=== PATIENT | female | born 1950 | race Caucasian/White ===

== ENCOUNTER 2018-09-07 08:02 | Emergency (ER) | payer OTHER, MEDICARE, SELFPAY ==
[2018-09-07 08:07] VITALS: BP 160/72; PULSE 98; RESP 16; TEMP 36.6; O2SAT 98
--- NOTE | 2018-09-07 08:35 | W.ED.GENAD ---
Discharge Plan Disposition Patient Disposition: HOME Condition: Good Discharge Details Chief Complaint: Cellulitis Clinical Impression: Colitis without complication, Blister Primary Care Provider: Jennifer Bee ED Provider: Kirill Nelson Home Meds and New Rx's Prescriptions: No Action amoxicillin 500 mg Capsule 500 mg PO DAILY RF: 0 metoprolol succinate 50 mg Tablet Extended Release 24 Hr 50 mg PO DAILY RF: 0 rosuvastatin 10 mg Tablet 10 mg PO DAILY RF: 0 Discharge Instructions Instructions: Colitis (ED) Referrals: [facility] Emergency Dept. [Outside] - Return if symptoms worsen Medical Decision Making History and exam consistent with colitis from custodial Amoxicillin use. Blister is unrelated issue and I do not see any fissure or active tracking of the abdomen blister. Superficial with no depth to the wound. We discussed possible differentials and diagnostic to confirm. She agrees with the antibiotic causing the symptoms at this point. So we agreed to treat conservatively without diagnostics. She will increase her probiotic regiment either with more yogurt or probiotic. She agrees to return if symptoms worsen i.e blood in stool, fever, or worsening pain. Advised to keep belly button clean and dry and no antibiotics. HPI General Mode of arrival: ambulatory. Date/Time Provider Initiated Documentation: 09/07/18 08:05. Limitations to Documentation: no limitations. Information obtained by: patient. History of Present Illness 68 year old F presents to the emergency department with the chief complaint of abdominal discomfort and skin infection, HPI Narrative: 68 y/o female here with concerns of possible abscess to abdomen and secondary low abdominal pain with back pain. For the last few weeks she has noticed bilateral lower abdominal pain with intermittent loose stools and bilateral lower back pain. Denies any fever, chills, N/V, cp, or sob. Although no chest pain she has felt occasional panicky in the chest. This morning in the shower she felt a little pain to the belly button. She felt the area with her finger and noticed it to be wet and had smelly discharge on her finger. Concerned about cellulitis which was on her mind because her son was recently admitted for cellulitis. She is currently weaning herself off Amoxicillin for roscea for which she has been on for the last three weeks. She does eat yogurt daily. she has had similar abdominal discomfort in the past. Related Data Home Medications Medication Instructions Recorded Confirmed amoxicillin 500 mg PO DAILY 09/07/18 09/07/18 metoprolol succinate 50 mg PO DAILY 09/07/18 09/07/18 rosuvastatin 10 mg PO DAILY 09/07/18 09/07/18 Allergies Allergy/AdvReac Type Severity Reaction Status Date / Time doxycycline Allergy Skin Rash Unverified 09/07/18 08:12 Tetracyclines Allergy Skin Rash Unverified 09/07/18 08:12 General Stated Complaint: Cellulitis GIOVANI: 3 Review of Systems Constitutional Denies fatigue, Denies fever(s), Denies poor appetite, Denies weakness, Denies weight gain and Denies weight loss ENT Reports system reviewed and no additional complaints, except as docu Cardiovascular Reports system reviewed and no additional complaints, except as docu Respiratory Reports system reviewed and no additional complaints, except as docu Gastrointestinal Reports abdominal pain, Reports bloating, Denies hematochezia, Denies coffee ground emesis, Reports loose stools, Denies nausea and Denies vomiting Genitourinary Reports system reviewed and no additional complaints, except as docu Musculoskeletal Reports back pain Integumentary/Breasts Reports wounds (belly button) Neurologic Denies weakness Endocrine Reports system reviewed and no additional complaints, except as docu and Denies fatigue Hematologic/Lymphatic Reports system reviewed and no additional complaints, except as docu PFSH Social History Smoking/Tobacco Use Status: Never Exam Const General: cooperative, comfortable, no acute distress and well developed Nutritional Appearance: average body habitus Orientation: alert, awake and oriented x3 HENMT Head: atraumatic Ears: hearing grossly normal bilaterally and external ears normal General nose exam: external nose normal and nares normal Mouth: moist mucous membranes Eyes General: appearance normal, both eyes and all related structures Neck Neck: normal visual inspection, full ROM and no lymphadenopathy Resp Effort & Inspection: normal respiratory effort and able to speak in complete sentences Auscultation: clear to auscultation bilaterally Cardio Rate: regular rate Rhythm: regular rhythm GI Inspection: non-distended and other (5mm diameter flat pink area that looks like a ruptured blister. No erythema) Palpation: soft, no guarding, no hepatosplenomegaly, no hernias, no masses and nontender Auscultation: normal bowel sounds General: No CVA tenderness Back/Spine/Pelvis Back: No back tenderness Cervical Spine: cervical ROM normal Thoracic/Lumbar Spine: thoraco-lumbar ROM normal Skin General skin exam: no rashes or lesions noted Full body images: 1. 5mm in diameter pink area that looks like a ruptured blister. No drainage, redness, or pain. No ascending redness and no warmth. Neuro General: alert, awake and oriented x3 Extrem General: normal to inspection, full ROM and normal capillary refill Psych Appearance: grossly normal Speech and Movement: speech and movement normal Mood: congruent mood Affect: normal affect Attitude: cooperative Thought Process: normal Thought Content: normal Course Vital Signs Temperature 36.6 C 09/07/18 08:07 Pulse 98 H 09/07/18 08:07 Respiratory Rate 16 09/07/18 08:07 Blood Pressure 160/72 H 09/07/18 08:07 Pulse Oximetry 98 09/07/18 08:07 Temperature 36.6 C 09/07/18 08:07 Temperature Source Temporal Artery Scan 09/07/18 08:07 Pulse 98 H 09/07/18 08:07 Respiratory Rate 16 09/07/18 08:07 Respiratory Effort Non-Labored 09/07/18 08:10 Blood Pressure 160/72 H 09/07/18 08:07 Blood Pressure Position Sitting 09/07/18 08:07 Pulse Oximetry 98 09/07/18 08:07 Oxygen Delivery Method Room Air 09/07/18 08:07 Oxygen Flow Rate 0 09/07/18 08:07 Pain Level 4 09/07/18 08:07
[2018-09-07 08:45] VITALS: BP 138/80; PULSE 88
--- NOTE | 2018-09-07 08:48 | ED.GENADUL_ITS ---
Discharge Plan Disposition Patient Disposition: HOME Condition: Good Discharge Details Chief Complaint: Cellulitis Clinical Impression: Colitis without complication, Blister Primary Care Provider: Jennifer Bee ED Provider: Kirill Nelson Home Meds and New Rx's Prescriptions: No Action amoxicillin 500 mg Capsule 500 mg PO DAILY RF: 0 metoprolol succinate 50 mg Tablet Extended Release 24 Hr 50 mg PO DAILY RF: 0 rosuvastatin 10 mg Tablet 10 mg PO DAILY RF: 0 Discharge Instructions Instructions: Colitis (ED) Referrals: [facility] Emergency Dept. [Outside] - Return if symptoms worsen Medical Decision Making History and exam consistent with colitis from penitentiary Amoxicillin use. Blister is unrelated issue and I do not see any fissure or active tracking of the abdomen blister. Superficial with no depth to the wound. We discussed possible differentials and diagnostic to confirm. She agrees with the antibiotic causing the symptoms at this point. So we agreed to treat conservatively without diagnostics. She will increase her probiotic regiment either with more yogurt or probiotic. She agrees to return if symptoms worsen i.e blood in stool, fever, o r worsening pain. Advised to keep belly button clean and dry and no antibiotics. HPI General Mode of arrival: ambulatory . Date/Time Provider Initiated Documentation: 09/07/18 08:05 . Limitations to Documentation: no limitations . Information obtained by: patient . History of Present Illness 68 year old F presents to the emergency department with the chief complaint of abdominal disc omfort and skin infection, HPI Narrative: 68 y/o female here with concerns of possible abscess to abdomen and secondary low abdominal pain with back pain. For the last few weeks she has noticed bilateral lower abdominal pain with intermittent loose stools and bilateral lower back pain. Denies any fever, chills, N/V, cp, or sob. Although no chest pain she has felt occasional panicky in the chest. This morning in the shower she felt a little pain to the belly button. She felt the area with her finger and noticed it to be wet and had smelly discharge on her finger. Concerned about cellulitis which was on her mind because her son was recently admitted for cellulitis. She is currently weaning herself off Amoxicillin for roscea for which she has been on for the last three weeks. She does eat yogurt daily. she has had similar abdominal discomfort in the past. Related Data Home Medications Medication Instructions Recorded Confirmed amoxicillin 500 mg PO DAILY 09/07/18 09/07/18 metoprolol succinate 50 mg PO DAILY 09/07/18 09/07/18 rosuvastatin 10 mg PO DAILY 09/07/18 09/07/18 Allergies Allergy/AdvReac Type Severity Reaction Status Date / Time doxycycline Allergy Skin Rash Unverified 09/07/18 08:12 Tetracyclines Allergy Skin Rash Unverified 09/07/18 08:12 General Stated Complaint: Cellulitis GIOVANI: 3 Review of Systems Constitutional Denies fatigue, Denies fever(s), Denies poor appetite, Denies weakness, Denies weight gain and Denies weight loss ENT Reports system reviewed and no additional complaints, except as docu Cardiovascular Reports system reviewed and no additional complaints, except as docu Respiratory Reports system reviewed and no additional complaints, except as docu Gastrointestinal Reports abdominal pain, Reports bloating, Denies hematochezia, Denies coffee ground emesis, Reports loose stools, Denies nausea and Denies vomiting Genitourinary Reports system reviewed and no additional complaints, except as docu Musculoskeletal Reports back pain Integumentary/Breasts Reports wounds (belly button) Neurologic Denies weakness Endocrine Reports system reviewed and no additional complaints, except as docu and Denies fatigue Hematologic/Lymphatic Reports system reviewed and no additional complaints, except as docu PFSH Social History Smoking/Tobacco Use Status: Never Exam Const General: cooperative, comfortable, no acute distress and well developed Nutritional Appearance: average body habitus Orientation: alert, awake and oriented x3 HENMT Head: atraumatic Ears: hearing grossly normal bilaterally and external ears normal General nose exam: external nose normal and nares normal Mouth: moist mucous membranes Eyes General: appearance normal, both eyes and all related structures Neck Neck: normal visual inspection, full ROM and no lymphadenopathy Resp Effort & Inspection: normal respiratory effort and able to speak in complete sentences Auscultation: clear to auscultation bilaterally Cardio Rate: regular rate Rhythm: regular rhythm GI Inspection: non-distended and other (5mm diameter flat pink area that looks like a ruptured blister. No erythema) Palpation: soft, no guarding, no hepatosplenomegaly, no hernias, no masses and nontender Auscultation: normal bowel sounds General: No CVA tenderness Back/Spine/Pelvis Back: No back tenderness Cervical Spine: cervical ROM normal Thoracic/Lumbar Spine: thoraco-lumbar ROM normal Skin General skin exam: no rashes or lesions noted Full body images: 1. 5mm in diameter pink area that looks like a ruptured blister. No drainage, redness, or pain. No ascending redness and no warmth. Neuro General: alert, awake and oriented x3 Extrem General: normal to inspection, full ROM and normal capillary refill Psych Appearance: grossly normal Speech and Movement: speech and movement normal Mood: congruent mood Affect: normal affect Attitude: cooperative Thought Process: normal Thought Content: normal Course Vital Signs Temperature 36.6 C 09/07/18 08:07 Pulse 98 H 09/07/18 08:07 Respiratory Rate 16 09/07/18 08:07 Blood Pressure 160/72 H 09/07/18 08:07 Pulse Oximetry 98 09/07/18 08:07 Temperature 36.6 C 09/07/18 08:07 Temperature Source Temporal Artery Scan 09/07/18 08:07 Pulse 98 H 09/07/18 08:07 Respiratory Rate 16 09/07/18 08:07 Respiratory Effort Non-Labored 09/07/18 08:10 Blood Pressure 160/72 H 09/07/18 08:07 Blood Pressure Position Sitting 09/07/18 08:07 Pulse Oximetry 98 09/07/18 08:07 Oxygen Delivery Method Room Air 09/07/18 08:07 Oxygen Flow Rate 0 09/07/18 08:07 Pain Level 4 09/07/18 08:07
== END 2018-09-07 08:41 | disposition home or self-care (01) ==
PROVIDERS: Emergency Provider Nurse Practitioner Family; PCP Family Medicine
DX: K52.9 Noninfective gastroenteritis and colitis, unspecified (principal); S30.821A Blister (nonthermal) of abdominal wall, initial encounter; X58.XXXA Exposure to other specified factors, initial encounter
CPT/HCPCS: 99282

== ENCOUNTER 2020-07-12 09:10 | Outpatient (REF) | payer OTHER, MEDICARE, SELFPAY ==
[2020-07-14 17:54] LABS: COVID-19 RT-PCR Result NEGATIVE (Negative)
== END 2020-07-12 09:30 ==
LOC: LBO 09:10
PROVIDERS: PCP Family Medicine; Visit Provider Nurse Practitioner Family
DX: Z11.59 Encounter for screening for other viral diseases (principal)
CPT/HCPCS: U0003

== ENCOUNTER 2020-12-24 09:41 | Outpatient (CLI) | payer OTHER, MEDICARE, SELFPAY ==
--- NOTE | 2020-12-24 | DI.RAD_ITS ---
EXAM: XR FOOT LT COMPLETE CLINICAL HISTORY: FOOT PAIN, M79.673 TECHNIQUE: COMPARISON: No exams were available for comparison FINDINGS: Three views were obtained. There are mild degenerative changes of the IP joints. Bony alignment christofer ears essentially within normal limits. No other significant abnormality seen. IMPRESSION: RADIATION DOSE DELIVERED: Total DLP
--- NOTE | 2020-12-24 | DI.RAD_ITS ---
EXAM: XR FOOT RT COMPLETE CLINICAL HISTORY: FOOT PAIN, M79.673 TECHNIQUE: COMPARISON: CR XR FOOT LT COMPLETE from 12/24/2020 FINDINGS: Three views were obtained. There are [id number] degenerative changes of the IP joints. No oth er significant bony abnormality seen. Alignment appears within normal limits. IMPRESSION: RADIATION DOSE DELIVERED: Total DLP
== END 2020-12-24 10:01 ==
PROVIDERS: PCP Family Medicine; Visit Provider Family Medicine
DX: M79.671 Pain in right foot (principal); M79.672 Pain in left foot
CPT/HCPCS: 73630

== ENCOUNTER 2021-01-12 10:25 | Emergency (ER) | payer OTHER, MEDICARE, SELFPAY ==
[2021-01-12 10:31] VITALS: BP 139/68; PULSE 93; RESP 16; TEMP 36.4; O2SAT 99
--- NOTE | 2021-01-12 10:43 | ED.GENADUL_ITS ---
Discharge Plan Disposition Patient Disposition: HOME Condition: Good Discharge Details Clinical Impression: Foot sprain Primary Care Provider: Jennifer Bee ED Provider: Nell Castro Home Meds and New Rx's Prescriptions: Continued metoprolol succinate 50 mg Tablet Extended Release 24 Hr 50 mg PO DAILY RF: 0 rosuvastatin 10 mg Tablet 10 mg PO DAILY RF: 0 No Action diclofenac potassium 50 mg Tablet 50 mg PO BID RF: 0 famotidine 40 mg Tablet 40 mg PO DAILY RF: 0 Discharge Instructions Instructions: Foot Sprain (ED) Additional Instructions: Imaging is reassuring today. Likely sprain. Please encourage rest, ice, elevation. Tylenol and/or ibuprofen as needed for discomfort. You may use postoperative shoe to help with discomfort. You develop new or worsening symptoms to seek care urgently once again. Otherwise, please follow-up with your primary care in 2 weeks for reevaluation Referrals: Jennifer Bee [Primary Care Provider] - Discharge Data Discharge Date/Time-TO BE ENTERED AT DEPARTURE: 01/12/21 13:34 Medical Decision Making Patient is a pleasant 70 year old female presenting today with c/c of left foot pain. Reports rotational injury at home. No other injury at the time of the incident. States she can walk on lateral foot but cannot weight bear flat foot or put pressure on arch of her foot. No N/T. [place] a pop. On exam, she appears nontoxic. 2+ distal pulses, sensation intact. ROM of toes and ankle intact. No pain in toes or over 5th metatarsal. No pain over heel or ankle. Pain in arch, minimal swelling. No discoloration. Patient declines analgesics. Will obtain xr for evaluation for potential fracture. FINDINGS: There is no evidence of fracture or diastasis of the Lisfranc joint. However, there is subtle suggestion of a fracture of the anterior process of the calcaneus. Accessory ossicles are noted lateral to the cuboid bone. No pes planus. No osseous lesions nor erosions. No radiopaque foreign body. No inferior calcaneal spur. IMPRESSION: Subtle suggestion of possible fracture of the anterior process of the calcaneus. Recommend ankle views which may better demonstrate this possible fracture. Will obtain repeat imaging as recommended. FINDINGS: There is no evidence of fracture nor widening of the mortise. The anterior process of the calcaneus does not appear fractured on these views. There is no osseous tarsal coalition. Talar dome appears unremarkable. IMPRESSION: No fracture evident Discussed finding with the patient. Likely sprain. Encouraged RICE. She will wear a post operative shoe to help with immobilization and support. Advised f/u with PCP in 2 weeks for reevaluation. Return precautions discussed. All of her questions and concerns were addressed, she is in agreement with this plan. HPI General Mode of arrival: ambulatory . Date/Time Provider Initiated Documentation: 01/12/21 10:42 . Limitations to Documentation: no limitations . Information obtained by: patient and RN notes reviewed . History of Present Illness 70 year old F presents to the emergency department with the chief complaint of left foot pain, described as moderate, with intensity rated at 7. Quality is described as aching, and is localized to the left and lower extremity. Patient reports no radiation. Patient started experiencing this minute(s) and it has been constant. Immobilization improves symptom(s), Movement worsens symptoms . Patient notes no other symptoms.. Patient did receive the following treatments prior to arrival, none Related Data Home Medications Medication Instructions Recorded Confirmed metoprolol succinate 50 mg PO DAILY 09/07/18 01/12/21 rosuvastatin 10 mg PO DAILY 09/07/18 01/12/21 diclofenac potassium 50 mg PO BID 01/12/21 01/12/21 famotidine 40 mg PO DAILY 01/12/21 01/12/21 Allergies Allergy/AdvReac Type Severity Reaction Status Date / Time doxycycline Allergy Skin Rash Unverified 01/12/21 10:36 Tetracyclines Allergy Skin Rash Unverified 01/12/21 10:36 General Stated Complaint: Orthopedic GIOVANI: 4 Review of Systems Constitutional Constitutional: Reports as per HPI, Denies chills, Denies fever(s), Denies headache(s) and Denies weakness ENT Ears, Nose, Mouth, and Throat: Denies headache(s) Cardiovascular Cardiovascular: Reports as per HPI Respiratory Respiratory: Reports as per HPI and Denies cough Musculoskeletal Musculoskeletal: Reports as per HPI and Denies tingling Integumentary/Breasts Skin/Breast: Reports as per HPI, Denies rash and Denies wounds Neurologic Neurologic: Reports as per HPI, Denies headache(s), Denies tingling, Denies paresthesias and Denies weakness [facility] Medical History (Updated 01/12/21 @ 13:20 by WEI Noriega) Essential hypertension Hyperlipidemia Migraine Rosacea Social History Smoking/Tobacco Use Status: Never Smoking risk assessment performed?: Yes Alcohol Intake: current Alcohol Intake frequency: holidays/special occasions only Alcohol type: wine Drug use: Never Do you feel safe at home: Yes Do you feel safe in your relationship?: Yes Exam Const General: cooperative, healthy appearing, comfortable, no acute distress, well developed and well groomed Nutritional Appearance: average body habitus and well nourished Orientation: alert and awake Resp Effort & Inspection: normal respiratory effort, able to speak in complete sentences and no respiratory distress Cardio Rate: regular rate Rhythm: regular rhythm Skin General skin exam: no rashes or lesions noted Lesions: no lesions Rashes: no rashes Trauma: no lacerations or abrasions Neuro General: patient alert and patient awake Cognition: normal cognition Speech: speech normal Gait: antalgic Motor: muscle tone normal throughout Sensory Exam: no sensory deficits noted Extrem Ankle/foot/toe images: 1. Area of pain. Slight swelling. No palpable deformity. No discoloration. 2+ distal pulses. Sensation is intact. No pain over the fifth metatarsal. No pain over the calcaneus. No pain in the ankle. No break in the skin. Psych Appearance: grossly normal and well kempt Mental Status: mental status grossly normal Speech and Movement: speech and movement normal Course Vital Signs Vital signs: Vital Signs Temperature 36.4 C L 01/12/21 10:31 Pulse 93 H 01/12/21 10:31 Respiratory Rate 16 01/12/21 10:31 Blood Pressure 139/68 01/12/21 10:31 Pulse Oximetry 99 01/12/21 10:31 Temperature 36.4 C L 01/12/21 10:31 Temperature Source Skin 01/12/21 10:31 Pulse 93 H 01/12/21 10:31 Respiratory Rate 16 01/12/21 10:31 Respiratory Effort 01/12/21 10:37 Blood Pressure 139/68 01/12/21 10:31 Blood Pressure Position Sitting 01/12/21 10:31 Pulse Oximetry 99 01/12/21 10:31 Oxygen Delivery Method Room Air 01/12/21 10:31 Oxygen Flow Rate 0 01/12/21 10:31 Pain Level 7 01/12/21 10:31
--- NOTE | 2021-01-12 11:27 | DI.RAD_ITS ---
EXAM: XR FOOT LT COMPLETE CLINICAL HISTORY: rotational injury at home, pain in arch. TECHNIQUE: 2D digital imaging was performed. COMPARISON: No exams were available for comparison FINDINGS: There is no evidence of fracture or diastasis of the Lisfranc joint. However, there is subtle sugges tion of a fracture of the anterior process of the calcaneus. Accessory ossicles are noted lateral to the cuboid bone. No pes planus. No osseous lesions nor erosions. No radiopaque foreign body. No inferior calcaneal spur. IMPRESSION: Subtle suggestion of possible fracture of the anterior process of the calcaneus. Recommend ankle vie ws which may better demonstrate this possible fracture. DATA REPOSITORY: RADIATION DOSE DELIVERED:
--- NOTE | 2021-01-12 12:42 | DI.RAD_ITS ---
EXAM: XR ANKLE LT COMPLETE CLINICAL HISTORY: foot pain after rotational injury, concern on init. TECHNIQUE: 2D digital imaging was performed. COMPARISON: No exams were available for comparison FINDINGS: There is no evidence of fracture nor widening of the mortise. The anterior process of the calcaneus does not appear fractured on these views. There is no osseous tarsal coalition. Talar dome appears unremarkable. IMPRESSION: No fracture evident. DATA REPOSITORY: RADIATION DOSE DELIVERED:
== END 2021-01-12 13:34 | disposition home or self-care (01) ==
PROVIDERS: Emergency Provider Physician Assistant; PCP Family Medicine
DX: S93.692A Other sprain of left foot, initial encounter (principal); X58.XXXA Exposure to other specified factors, initial encounter
CPT/HCPCS: 99284; 73610; 73630; 99283

== ENCOUNTER 2022-01-02 18:38 | Outpatient (REF) | payer OTHER, MEDICARE, SELFPAY ==
[2022-01-02 19:42] LABS: ALT 30 U/L (14-59); AST 21 U/L (15-37); Albumin 4.4 g/dL (3.4-5.0); Alkaline Phosphatase 63 U/L (46-116); Anion Gap 9.5 mmol/L (3-11); BUN 15 mg/dL (7-18); Bilirubin, Total 0.5 mg/dL (0.2-1.0); CO2 28.5 mmol/L (21.0-32.0); CREATININE 0.8 mg/dL (0.55-1.02); Calcium 9.5 mg/dL (8.5-10.1); Chloride 102 mmol/L (98-107); Glucose 90 mg/dL (74-106); Potassium 4.6 mmol/L (3.5-5.1); Sodium 140 mmol/L (136-145); Total Protein 7.5 g/dL (6.4-8.2)
[2022-01-02 19:50] LABS: Vitamin D 25 Total 34.8 ng/mL (30-100)
[2022-01-02 19:57] LABS: Calculated LDL 87 mg/dL (<100); Cholesterol 180 mg/dL (<200); HDL Cholesterol 61 mg/dL (40-60); Triglyceride 161 mg/dL (<150)
== END 2022-01-02 18:39 | disposition home or self-care (01) ==
LOC: NCHCN 18:38
PROVIDERS: PCP Family Medicine; Visit Provider Family Medicine
DX: Z00.00 Encounter for general adult medical examination without abnormal findings (principal); I10 Essential (primary) hypertension
CPT/HCPCS: 80053; 80061; 82306

== ENCOUNTER → 2022-02-24 00:01 | Outpatient (CLI) | payer OTHER, MEDICARE, SELFPAY ==
--- NOTE | 2022-02-24 | DI.DEXA_ITS ---
Exam(s) XR DEXA BONE DENSITY W/WO BRAD EXAM: XR DEXA BONE DENSITY W/WO BRAD CLINICAL HISTORY: MENOPAUSE Z78.0, SCREENING TECHNIQUE: COMPARISON: No exams were available for comparison FINDINGS: Lateral Spine Image: Unremarkable. No compression deformities identified. Left hip: Total T-Score: -0.8 Total Z-Score: 0.7 T- and Z-scores: This is within normal limits. There is osteopenia seen in the femoral neck with a T -score of -1.7. Lumbar Spine: Total T-Score: -1.3 Total Z-Score: 0.8 T- and Z-scores: Findings are consistent with osteopenia. IMPRESSION: No evidence of osteoporosis.
--- NOTE | 2022-02-24 | DI.MAMMO_ITS ---
Exam(s) MAMMO SCREENING EXAM: MAMMO SCREENING CLINICAL HISTORY: SCREENING FOR BREAST CANCER Z12.31 TECHNIQUE: Bilateral full field digital CC and MLO mammographic images were obtained with 3D tomosyn thesis and utilizing computer aided detection (CAD). COMPARISON: Available for comparison. FINDINGS: Masses/Architectural Distortion: There is an area of breast asymmetry in the upper left breast on the MLO view. Microcalcifications: No suspicious pleomorphic-type are seen. Skin Thickening/Nipple Retraction: None. IMPRESSION: 1. Area of breast asymmetry in the upper left breast on the MLO view. 2. This area should be further evaluated with a spot compression view. Ultrasound may be indicated a t that time. BI-RADS Category 0 - Assessment Incomplete: Need additional imaging evaluation Breast Density - Category C - Heterogeneously dense Breast density category C or D implies that the patient has dense breast tissue. Dense breast tissue is very common and is not abnormal but dense breast tissue can make it harder to find cancer on a ma mmogram. Also, dense breast tissue may increase their breast cancer risk. This information about the result of the mammogram report was provided to the patient to raise their awareness. Use this report when you speak with the patient about their risks for breast cancer, which includes their family hist ory. At that time, you may recommend for more screening tests (Ultrasound or MRI) as they might be us eful based on their risk. A negative radiographic report should not delay biopsy if a dominant or clinically suspicious mass is present. Up to ten percent of cancers are not identified on mammography. A negative report may reinforce clinical impression. Adenosis and dense breasts may obscure an underlying neoplasm. False positive reports average 6 to 10%. Patient will receive a letter notifying them of these results.
== END ==
PROVIDERS: PCP Family Medicine; Visit Provider Family Medicine
DX: Z12.31 Encounter for screening mammogram for malignant neoplasm of breast (principal); R92.8 Other abnormal and inconclusive findings on diagnostic imaging of breast; M85.88 Other specified disorders of bone density and structure, other site; Z78.0 Asymptomatic menopausal state
CPT/HCPCS: 77063; 77067; 77080

== ENCOUNTER 2022-05-03 02:52 | Emergency (ER) | payer OTHER, MEDICARE, SELFPAY ==
[2022-05-03 02:57] VITALS: BP 141/77; PULSE 91; RESP 16; TEMP 36.8; O2SAT 97
--- NOTE | 2022-05-03 03:14 | W.ED.GENAD ---
Discharge Plan Disposition Patient Disposition: HOME Condition: Stable Discharge Details Clinical Impression: Laceration of face Primary Care Provider: Jennifer Bee ED Provider: Kirill Rader Home Meds and New Rx's Prescriptions: Continued metoprolol succinate 50 mg Tablet Extended Release 24 Hr 50 mg PO DAILY rosuvastatin 10 mg Tablet 10 mg PO DAILY Discharge Instructions Instructions: Facial Laceration (ED) Additional Instructions: return in 7-10 days for evaluation for suture removal return sooner if you have spreading redness, yellow/white discharge, or have severe headache or persistent vomiting Medical Decision Making 71 yo female with hx of hld comes in with complaints of forehead laceration. She went to bed and woke up to use the bathroom. As she was walking she tripped over the cord of her fan that was suspended a few inchest off the ground, fell forward and hit the front of her head on the back of the toilet. Denies loc, no n/v and no headache since the fall, has some pain around the laceration site only. She denies chest pain, back pain, neck pain. She has some right knee pain as well. She has no traumatic findings of the knee, full rom and normal distal sensation. She has a 2cm laceration that runs vertically just superrior the the eyebrow. EOMI, perrl, no pain with eye movements, no other deformities noted. Based on her exam and history unlikely tbi and do not feel ct imaging indicated especially since she takes no anticoagulation. Will close wound with sutures. She has full rom of the knee and only mild patella tenderness so do not feel xray indicated as unlikely fracture. pt had 2 sutures placed without complications, remains stable. Will d/c and have her return for suture removal and sooner if signs of wound infection or severe pain or persistent vomiting Differential Diagnosis Differential Diagnosis: laceration, concussion HPI General Date/Time Provider Initiated Documentation: 05/03/22 03:02. Limitations to Documentation: no limitations. Information obtained by: patient. History of Present Illness 71 year old F presents to the emergency department with the chief complaint of forehead laceration, described as moderate, and is localized to the face. Patient reports no radiation. Patient started experiencing this hour(s) (1) and it has been constant. No relieving factors improve symptom(s), No exacerbating factors reported . Patient notes no other symptoms.. Patient did receive the following treatments prior to arrival, other (tylenol) Related Data Home Medications Medication Instructions Recorded Confirmed metoprolol succinate 50 mg 50 mg PO DAILY 09/07/18 05/03/22 tablet,extended release 24 hr rosuvastatin 10 mg tablet 10 mg PO DAILY 09/07/18 05/03/22 Allergies Allergy/AdvReac Type Severity Reaction Status Date / Time doxycycline Allergy Skin Rash Unverified 05/03/22 03:02 Tetracyclines Allergy Skin Rash Unverified 05/03/22 03:02 General Stated Complaint: Trauma GIOVANI: 4 Review of Systems All systems reviewed & are unremarkable except as noted in HPI and below Constitutional Constitutional: Denies chills, Denies fever(s) and Denies weakness Eyes Eyes: Denies loss of vision ENT Ears, Nose, Mouth, and Throat: Denies change in voice Cardiovascular Cardiovascular: Denies chest pain and Denies dyspnea Respiratory Respiratory: Denies cough and Denies dyspnea Gastrointestinal Gastrointestinal: Denies abdominal pain, Denies nausea and Denies vomiting Neurologic Neurologic: Denies loss of vision and Denies weakness PFSH All Active Problems (Updated 05/03/22 @ 03:37 by Kirill Rader MD) Foot sprain (Acute) Laceration of face (Acute) Screening for colon cancer (Acute) Encounter for screening for other viral diseases (Acute) Medical History (Updated 05/03/22 @ 03:37 by Kirill Rader MD) Essential hypertension Hyperlipidemia Migraine Rosacea Social History Smoking/Tobacco Use Status: Never Smoking risk assessment performed?: Yes Alcohol Intake: current Alcohol Intake frequency: a few times a month Alcohol type: wine Drug use: Never Substance use type: does not use Do you feel safe at home: Yes Do you feel safe in your relationship?: Yes Exam Const General: no acute distress Orientation: alert [facility] Head: no palpable skull fracture Ears: external ears normal General nose exam: external nose normal Mouth: moist mucous membranes Eyes General: appearance normal, both eyes and all related structures Neck Neck: normal visual inspection Resp Effort & Inspection: normal respiratory effort and able to speak in complete sentences Cardio Rate: regular rate Skin General skin exam: no rashes or lesions noted Neuro General: patient alert and patient oriented x3 Extrem General: normal to inspection Psych Mental Status: mental status grossly normal Course Vital Signs Vital signs: Vital Signs Temperature 36.8 C 05/03/22 02:57 Pulse 91 H 05/03/22 02:57 Respiratory Rate 16 05/03/22 02:57 Blood Pressure 141/77 H 05/03/22 02:57 Pulse Oximetry 97 05/03/22 02:57 Temperature 36.8 C 05/03/22 02:57 Temperature Source Temporal Artery Scan 05/03/22 02:57 Pulse 91 H 05/03/22 02:57 Respiratory Rate 16 05/03/22 02:57 Respiratory Effort 05/03/22 02:57 Blood Pressure 141/77 H 05/03/22 02:57 Blood Pressure Position Supine 05/03/22 02:57 Pulse Oximetry 97 05/03/22 02:57 Oxygen Delivery Method Room Air 05/03/22 02:57 Oxygen Flow Rate 0 05/03/22 02:57 Pain Level 6 05/03/22 02:57 Procedures Laceration Laceration 1: Site: face Side (If applicable): right Size (cm): 2 Description: linear Depth: simple, single layer Local Anesthetic: Lidocaine 1% and with Epi Amount of anesthesia used (mL): 5 Pre-repair: wound explored and irrigated extensively Skin layer closed with: nylon Size (cm): 5-0 Number of sutures: 2 Technique: simple, interrupted
[2022-05-03 03:45] VITALS: BP 137/72; PULSE 88; RESP 16; TEMP 36.8; O2SAT 97
== END 2022-05-03 03:43 | disposition home or self-care (01) ==
PROVIDERS: Emergency Provider Emergency Medicine; PCP Family Medicine
DX: S01.81XA Laceration without foreign body of other part of head, initial encounter (principal); I10 Essential (primary) hypertension; W01.198A Fall on same level from slipping, tripping and stumbling with subsequent striking against other object, initial encounter; Y93.01 Activity, walking, marching and hiking
CPT/HCPCS: 12011; 99281; 99282

== ENCOUNTER → 2022-05-19 00:10 | Outpatient (CLI) | payer OTHER, MEDICARE, SELFPAY ==
--- NOTE | 2022-05-19 | DI.US_ITS ---
Exam(s) MG MAMMO SCREEN CALL BACK UNI US BREAST LT COMPLETE EXAM: MG MAMMO SCREEN CALL BACK UNI -LEFT AND COMPLETE LEFT BREAST ULTRASOUND CLINICAL HISTORY: F/U MAMMO, BREAST ASYMMETRY UPPER LT BREAST, R92.8. TECHNIQUE: Unilateral spot mammographic images obtained with 3D tomosynthesisand utilizing computer aided detection (CAD). . Complete LEFT breast Ultrasound was also performed, including all 4 quadrants, the retroareolar regio n, and the ipsilateral axilla. COMPARISON: Prior mammograms were reviewed. Her most recent mammogram was in 2012. This additional imaging was performed due to findings described on the recent screening mammogram of 02/24/2022. FINDINGS: DIAGNOSTIC LEFT BREAST MAMMOGRAM: Additional mammographic views performed todayare equivocal. However, the area in concern looks relatively similar to its appearance on the mammogram of 2013. COMPLETE LEFT BREAST ULTRASOUND: Ultrasound performed today reveals no evidence of solid or significant cystic lesions in the area see n on the mammogram.. At the 4 o'clock position there is a subtle benign-appearing finding measuring approximately 10 x 2 b y 4 millimeters. This is probably a duct. No findings in the immediate retroareolar region. No adenopathy in the ipsilateral left axilla IMPRESSION: 1. Benign-appearing mammographic findings. 2. Benign-appearing ultrasound findings as discussed above. Appropriate follow-up is repeat left breast imaging in 6 months, including repeat left breast mammogr am and ultrasound. The patient was informed of these findings and recommendations by myself prior to leaving the departm ent today. BI-RADS Category 3 - 6 month - Probably Benign Finding: Recommend follow-up mammography in 6 months Breast Density - Category C - Heterogeneously dense Breast density Category C or D implies that the patient has dense breast tissue. Dense breast tissue can make it harder to find cancer on a mammogram. Dense breast tissue is also associated with an incr eased risk of breast cancer. This information about the result of the mammogram report was provided to the patient to raise their awareness. Use this report when you speak with the patient about their risks for breast cancer, which includes their family history. At that time, you may recommend additional screening tests (Ultrasoun d or MRI) as these tests may add significant information. A negative radiographic report should not delay biopsy if a dominant or clinically suspicious mass is present. Up to ten percent of cancers are not identified on mammography. A negative report may reinforce clinical impression. Adenosis and dense breasts may obscure an underlying neoplasm. False positive reports average 6 to 10%. Patient will receive a letter notifying them of these results.
== END ==
PROVIDERS: PCP Family Medicine; Visit Provider Family Medicine
DX: Z12.31 Encounter for screening mammogram for malignant neoplasm of breast (principal); R92.8 Other abnormal and inconclusive findings on diagnostic imaging of breast; N60.42 Mammary duct ectasia of left breast
CPT/HCPCS: 76642; 77063; 77067

== ENCOUNTER 2023-02-09 00:26 | Outpatient (CLI) | payer OTHER, MEDICARE, SELFPAY ==
--- NOTE | 2023-02-09 13:00 | DI.MAMMO_ITS ---
Exam(s) MAMMO DIAGNOSTIC BI US BREAST LT LIMITED EXAM: MAMMO DIAGNOSTIC BI and U/S breast LT limited CLINICAL HISTORY: 6-MO F/U ABNL FINDINGS ON DIAGNOSTIC IMAGING OF BREAST, R92.8. TECHNIQUE: Craniocaudal and mediolateral oblique Full Field Digital Mammography views with Computer Aided Diagnosis followed by Tomosynthesis and left breast ultrasound. COMPARISON: Comparison is made with prior examinations. FINDINGS: Mammography/Tomosynthesis: Masses/Architectural Distortion: None seen. Microcalcifictions: No suspicious pleomorphic-type are seen. Skin Thickening/Nipple Retraction: None. Limited left breast US: Echotexture: Normal appearance of the glandular tissue. Shadowing: No suspicious foci. Cyst: None. Solid lesions: There is an ovoid hypoechoic lesion at the 4 o'clock position of the left breast which is unchanged compared to the prior examination. It may represent normal fibroglandular tissue. Ductal dilation: None. IMPRESSION: 1. No definite evidence of malignancy is noted. 2. A six-month follow-up left mammogram and left breast ultrasound is requested for re-evaluation. 3. The findings were discussed with the patient on the date of the examination. BI-RADS Category 3 - 6 month - Probably Benign Finding: Recommend follow-up imaging in 6 months Breast Density - Category B - Scattered areas of fibroglandular density Breast density Category C or D implies that the patient has dense breast tissue. Dense breast tissue can make it harder to find cancer on a mammogram. Dense breast tissue is also associated with an incr eased risk of breast cancer. This information about the result of the mammogram report was provided to the patient to raise their awareness. Use this report when you speak with the patient about their risks for breast cancer, which includes their family history. At that time, you may recommend additional screening tests (Ultrasoun d or MRI) as these tests may add significant information. A negative radiographic report should not delay biopsy if a dominant or clinically suspicious mass is present. Up to ten percent of cancers are not identified on mammography. A negative report may reinforce clinical impression. Adenosis and dense breasts may obscure an underlying neoplasm. False positive reports average 6 to 10%. Patient will receive a letter notifying them of these results.
== END 2023-02-09 00:46 ==
PROVIDERS: PCP Family Medicine; Visit Provider Family Medicine
DX: Z12.31 Encounter for screening mammogram for malignant neoplasm of breast (principal); R92.8 Other abnormal and inconclusive findings on diagnostic imaging of breast
CPT/HCPCS: 76642; 77062; 77066; G0279

== ENCOUNTER 2023-03-22 04:15 | Outpatient (CLI) | payer OTHER, MEDICARE, SELFPAY ==
[2023-03-22 08:23] LABS: ALT 30 U/L (14-59); AST 22 U/L (15-37); Albumin 4.2 g/dL (3.4-5.0); Alkaline Phosphatase 60 U/L (46-116); Anion Gap 9.9 mmol/L (3-11); BUN 17 mg/dL (7-18); Bilirubin, Total 0.5 mg/dL (0.2-1.0); CO2 27.1 mmol/L (21.0-32.0); CREATININE 0.9 mg/dL (0.55-1.02); Calcium 9.3 mg/dL (8.5-10.1); Calculated LDL 101 mg/dL (<100); Chloride 104 mmol/L (98-107); Cholesterol 182 mg/dL (<200); Estimated GFR 68.35 (mL/min/1.73m2); Glucose 109 mg/dL (74-106); HDL Cholesterol 61 mg/dL (40-60); Potassium 4.1 mmol/L (3.5-5.1); Sodium 141 mmol/L (136-145); Total Protein 7.6 g/dL (6.4-8.2); Triglyceride 104 mg/dL (<150)
[2023-03-22 08:43] LABS: Vitamin D 25 Total 33.1 ng/mL (30-100)
== END 2023-03-22 04:16 | disposition home or self-care (01) ==
LOC: LBO 04:15
PROVIDERS: PCP Family Medicine; Visit Provider Family Medicine
DX: Z00.00 Encounter for general adult medical examination without abnormal findings (principal); E55.9 Vitamin D deficiency, unspecified; I10 Essential (primary) hypertension; E78.2 Mixed hyperlipidemia
CPT/HCPCS: 36415; 80053; 80061; 82306

== ENCOUNTER → 2023-07-03 01:00 | Outpatient (CLI) | payer OTHER, MEDICARE, SELFPAY ==
--- NOTE | 2023-07-03 07:30 | DI.RAD_ITS ---
Exam(s) XR FOOT RT COMPLETE EXAM: XR FOOT RT COMPLETE CLINICAL HISTORY: bilateral foot pain,m79.671. TECHNIQUE: 2D digital imaging was performed of the right foot. Three images were obtained. AP, obl ique and lateral views were obtained. COMPARISON: CR XR FOOT RT COMPLETE from 12/24/2020 FINDINGS: BONES: No acute fracture is present. No bony destructive lesion is seen. JOINTS: No dislocation present. There are mild degenerative changes of the foot characterized by join t space narrowing and osteophytes. The findings are most marked in the 3rd toe and the 1st MTP joint . SOFT TISSUE: Normal. IMPRESSION: Degenerative changes in the right foot. DATA REPOSITORY: RADIATION DOSE DELIVERED:
--- NOTE | 2023-07-03 07:30 | DI.RAD_ITS ---
Exam(s) XR FOOT LT COMPLETE EXAM: XR FOOT LT COMPLETE CLINICAL HISTORY: Bilateral foot pain,m79.672. TECHNIQUE: 2D digital imaging was performed of the left foot. Three images were obtained. AP, obli que and lateral views were obtained. COMPARISON: CR XR FOOT LT COMPLETE from 01/12/2021 FINDINGS: BONES: No acute fracture is present. No bony destructive lesion is seen. There are now orthopedic scr ews extending across the cuneiform is a and the tarsometatarsal joint. There is a lucency seen aroun d the distal aspect of the screw in the lateral cuneiform. This may represent loosening. Infection cannot be excluded. Please correlate clinically. JOINTS: No dislocation present. Mild degenerative changes are seen in the foot. SOFT TISSUE: Normal. IMPRESSION: Postsurgical changes at the tarsometatarsal joints. There is a lucency around the distal aspect of t he screw in the lateral cuneiform. This can be seen with loosening or infection. Please correlate c linically. DATA REPOSITORY: RADIATION DOSE DELIVERED:
== END ==
PROVIDERS: PCP Family Medicine; Visit Provider Podiatrist
DX: Z98.890 Other specified postprocedural states; M19.071 Primary osteoarthritis, right ankle and foot; M79.672 Pain in left foot
CPT/HCPCS: 73630

== ENCOUNTER 2024-06-15 22:04 | Emergency (ER) | payer OTHER, MEDICARE, SELFPAY ==
--- OUTSIDE RECORDS SUMMARY | 2024-06-15 22:15 | XMS_ITS | Encounter Summary ---
Author Organization [facility] Address [address] [place] [address] Care Team Providers Care Game Designer/Creative Director Name Role Phone Unavailable Primary Care Provider Unavailabl e Encounter Details Date Type Department Care Team (Late st Contact Info) Description 01/10/2021 Lab Requisition [facility] Pathology & Laboratory Medicine - [facility] [address] [place] [address] Outr Resulting Lab, Provider Social History Tobacco Use Types Packs/Day Years Used Date Smoking Tobacco: Never Assessed Interpersonal Safety Answer Date Record ed Physically Hurt Never 08/17/2020 Verbally Threaten Not on file 08/17/2020 Sex and Gender Information Value Date Recorded Sex Assigned at Not on file Gender Identity Not on file Sexual Orientation Not on file documented as of this encounter Plan of Treatment Not on file documented as of this encounter Procedures Procedure Name Priority Date/Time Associated Diagnosis Comments ZZCOVID-19 TEST [facility] PCR Today 01/10/2021 8:58 EDT COVID-19 TESTING Routine 01/10/2021 8:58 EDT documented in this encounter Results * COVID-19 TEST [facility] PCR (01/10/2021 8:58 EDT) Swab ENTIRE NASOPHARYNX / Unknown 01/10/2021 8:58 EDT 01/10/2021 16:18 EDT Provider Outr Resulting Lab MICROBIOLOGY - GENERAL ORDERABLES [facility] [address] [place] [address] * COVID-19 TESTING (01/10/2021 8:58 EDT) COVID-19 rt-PCR Result Negative Negative 01/10/2021 19:56 EDT [facility] Comment: This test has not been FDA cleared or approved. This test has been authorized by FDA under an EUA for use by authorized laboratories. This test has been authorized only for detection of nucleic acid from 2019-nCoV, not for any other viruses or pathogens. This test is only authorized for the duration of the declaration that circumstances exist justifying the authorization of emergency use of in vitro diagnostic tests for detection and/or diagnosis of 2019-nCoV under section 564(b)(1) of Act, 21 U.S.C ?? 360bbb-3(b) (1), unless the authorization is terminated or revoked sooner. Negative results do not preclude 2019-nCoV infection and should not be used as the sole basis for treatment or other patient management decisions. Negative results must be combined with clinical observations, patient history, and epidemiological information. Performed on the [employer] Fusion instrument Performing Lab Bob White [facility] 01/10/2021 19:56 EDT [facility] Swab 01/10/2021 8:58 EDT 01/10/2021 16:18 EDT Provider Outr Resulting Lab MICROBIOLOGY - GENERAL ORDERABLES [facility] [address] [place] [address] documented in this encounter Visit Diagnoses Not on filedocumented in this encounter
--- OUTSIDE RECORDS SUMMARY | 2024-06-15 22:15 | XMS_ITS | Encounter Summary ---
Author Organization [facility] [place] [address] Care Team Providers Care Shoe Repairer Helper Name Role Phone Jennifer Bee MD Primary Care Provider [phone] Reason for Visit * Reason Comments Rosacea Encounter Details Date Type Department Care Team (Latest Contact Info) Description 01/22/2019 9:15 AM EDT Office Visit Dermatology at [facility] [address] [place] [address] Chio Bergeron MD [facility] [place] [address] Rosacea; Persons encountering health services in other specified circumstances Social History Tobacco Use Types Packs/Day Years Used Date Smoking Tobacco: Passive Smo ke Exposure - Never Smoker Smokeless Tobacco: Never Sex and Gender Information Value Date Recorded Sex Assigned at Not on file Gender Identity Not on file Sexual Orientation Not on file documented as of this encounter Patient Instructions * Patient Instructions* Gloria Mcleod LPN - 01/22/2019 9:15 AM EDT Images from the original note were not included. Gloria LeeMD Hypoallergenic and Strengthening Skincare Regimen Morning and Night: 1) Wash face with: Truecider creamy cleanser 2) Then tone skin with: True cider serum 3) Then apply: Hydrate, Correct and Protect lotion You will also need a good sunscreen. Common suggestions are: -Cotz Face Natural Skin Tone SPF 40, 1.5 Ounce (tinted or untinted) Available at [employer] or [employer] - Elta UV physical SPF 41 at [employer] - Cerave Invisible Zinc at any pharmacy VBEAM You've made a great choice! The Vbeam procedure is one of the most commonly performed treatments inour office. It is intense, effective and safe. This laser treatment treats redness and blood vessels that detract from a healthy, evenly colored complexion. It also treats the inflammation of rosaceaand acne and can be effective at stimulating collagen growth. Treatments are usually performed as a series. We often suggest 2-5 treatments, performed monthly toobtain substantial improvement. We then advise maintenance treatments every 6-12 months because, whether treating rosacea, sun damage or aging in general, there is always a tendency to re accumulate redness and blood vessels. The best, most long-lasting results are seen in patients who maintain with a good skincare routine that includes excellent sun protection and a retinoid. Discuss this with your provider if you don't have such a regimen. Before Your Vbeam Procedure: ?? Consider taking 400-600 mg Ibuprofen to minimize discomfort during the procedure. ?? Stop all retinols, vitamin C, hydroxy acids 5 days before your treatment. (If on a ZO regimen products to avoid include: C Bright, TE Pads, Exfoliating Syriac, Vitascrub, Cebatrol, Glycogent, Melamix, Tretinoin, Retamax, Brightenex, Brightamax, Growth Factor, Invisapeel.) Check with your doctor if you are unsure. ?? If you plan to receive numbing cream, please be sure to come 30 min before your appointment timeand tell the front worker that you were told to do so. ?? Don't plan a major engagement within one week. (Prolonged swelling is very unlikely but better to be safe and allow a week.) ?? Expect redness and swelling for typically 24 hours. After Your Vbeam Procedure: ?? Apply ice yuli as needed for comfort. ?? Avoid heat or sun exposure until redness and swelling subside. ?? Swelling can be minimal to severe. If severe, consider sleeping with the head of your bed elevated. ?? Blood vessels and redness may seem worse than they were before the treatment in some areas. Thisdoesn't mean the treatment wasn't effective. Expect improvement to evolve over the following 3 weeks. ?? OK to resume your normal skin care routine when swelling, sensitivity and redness have resolved (typically 24-48 hours). ?? Avoid sun exposure directly to the skin for 1 week after treatment. Questions and/or concerns please call: ???s appointment departmental secretary For urgent concerns on weekends or off hours please call [facility] main number and ask for the inspector health care facilities combat control manager: or call Dr. Bergeron's cell: [phone] VBeam FAQs What does the Vbeam treat? The Vbeam laser is ideal for treating flushing, blood vessels and blood vessel growths (chun angiomas) on the face and body. These unwanted conditions are often the result of rosacea or sun exposure but can also just be a normal product of aging. What is a procedure like? Treatments are mildly to moderately uncomfortable. The discomfort occurs each time the laser is pulsed and resolves completely in between pulses. There is no lingering pain with this procedure. We apply protective eye patches during your treatment and blow cold air directly onto your skin in order to dampen the sting of the laser pulses. What can I do to prepare for a treatment? Calm patients are more comfortable! If you are nervous about the procedure you will have a less pleasant experience. Be sure to let us know if you have any unanswered questions. You may want to take 400-600 mg of Ibuprofen 1 hour before the procedure. Are there things I should avoid before or after the procedure? We ask that you avoid sun exposure 2weeks before and after your procedure. This is so important for avoiding discoloration as a side effect of the treatment. Avoid saunas, hot tubs or any form of high heat on the face for 24 hours after your procedure. What are the risks? Vbeam procedures are very safe. Blistering and scarring are nearly unheard of. Bruising, swelling and redness are common but avoidable with cautious settings. Can I do this and go back to work? Some patients, especially those who do focal treatments on the nose and cheeks, can go right back to work. Swelling and redness after the procedure are largely a factor of the severity of redness and size/amount of blood vessels going into the procedure. Typicallythe first treatment causes the most redness and swelling. Most patients do not plan any important social or work encounters for 3 days to be careful. How long will my results last? The duration of the benefit from Vbeam treatments is variable. It depends on the activity of the underlying condition. A patient with active rosacea will need more frequent treatments than a person whose rosacea is inactive or well managed by skincare or prescriptions. Results are likely to last longer in patients who avoid triggers for their facial redness (sunlight, hot beverages, spicy food, red wine, stress, poor sleep). How often will I need a treatment? Most patients receive 1-3 treatments, by 3-4 weeks andthen receive a single, maintenance treatment every 6- 12 months. Many patients need even fewer treatments b/c they are so careful about avoiding triggers and are using effective skin care and sun protection at home. documented in this encounter Progress Notes * Chio Bergeron MD - 01/22/2019 9:15 AM EDT DERMATOLOGY ESTABLISHED PATIENT CLINIC NOTE DATE OF SERVICE: 01/22/2019 Malissa Le : 1950 PROVIDER: Chio Bergeron MD PATIENT PREFERENCES: -prefers to be called: Bianca Brushmail?: Yes and what #: in chart -special considerations: -ok to discuss details of diagnosis and treatment with: Rai updated01/22/2019 Chief Complaint Patient presents with ??? Rosacea HPI Malissa Le is a 68 y.o. year old female. New patient to me? Yes To DH? No, medical dermatology by Dr. Gatica and last seen on 12/17/18 1. Here for follow up of rosace located on face. Last seen by Dr. Gatica (provider) 12/17/18 . - Rosacea is better - Skin is oily? No Skin is dry? Yes Skin is sensitive to products? Ceravae aggravated it - Associated with any eye symptoms? Redness (burning, itching, dryness, redness) - Special considerations: - Medications Name of Medication: Metrogel Where applied?: face When?: twice daily Date started: 20 years ago Tolerating? yes Notes: Name of Medication: Amoxicillin Dose: 500 mg When: daily Date started: 2 years ago Tolerating? Getsabdominal pain if taking daily Notes: 2. Currently washes face with Dove soap and uses the metrogel. She uses liquid make up during the day. She feels heat made it flare Skin Hx: - Rosacea: Metronidazole cream 0.75% and Amoxicillin 500mg - Actinic keratosis Current Outpatient Medications on File Prior to Visit Medication Sig Dispense Refill ??? multivitamin Capsule Take 1 capsule by mouth daily. ??? amoxicillin (AMOXIL) 500 mg Capsule Take 1 cap once daily for rosacea, weaning off as face clears. 30 capsule 1 ??? metroNIDAZOLE (METROCREAM) 0.75 % Cream Apply once or twice daily to face for rosacea 45 g 1 ??? rosuvastatin (CRESTOR) 10 mg Tablet Take 10 mg by mouth daily. ??? meTOPROLOL tartrate (LOPRESSOR) 50 mg Tablet Take 50 mg by mouth 2 times daily. No current facility-administered medications on file prior to visit. Allergies Allergen Reactions ??? Doxycycline Rash ??? Tetracycline Rash EXAM General: AAOx3 Well-nourished adult in no apparent distress Skin: Patient chose Neck up A focal examination of the following areas was performed:An exam of the skin from the neck up was performed. This includes examination of the skin of the face, ears, scalp, and neck. DIAGNOSIS/SKIN FINDINGS/ASSESSMENT/PLAN: # Rosacea - located on the face Discussed skin care regiment to include Gloria Salvador three step process with the recommendation to start this skin care before considering further options. Discussed compounded product for skin care in an attempt to replace oral antibiotic RX: Ceravae Cream with 40% sulfur cream apply topically to face 1-2 times daily for flares, orderedfaxed for compounding # V-Beam treatments for Rosacea located on face - Number of treatments recommeded: 3 (one month apart) - Special considerations for this pt: - Area of main concern: face - Before and after instructions given (in AVS): yes (name of handout) - HSV prophylaxis needed?: N If yes, does pt have rx?: N/A date verified: 01/22/2019 - gaspar quoted: $350.00 - See laser log for treatment dates and details -Additional notes: # Photography: - Date: 01/22/2019 View: Head and neck flash and no flash Initials: DW FOLLOW UP WHEN: PRN FOR WHAT: Rosacea LENGTH OF VISIT: 15 NUMBING?: no PICTURES NEEDED? no WHEN: PRN FOR WHAT: V-Beam LENGTH OF VISIT: 15 NUMBING?: no PICTURES NEEDED? No I am documenting this encounter acting as the scribe for and in the presence of Dr.Roberta Rubio Mcleod LPN I performed the above scribed service and agree with the accuracy of the documentation in this encounter. Chio Bergeron MD Section of Dermatology [facility] Malissa Ng Le 01/22/2019 [id number] documented in this encounter Plan of Treatment Not on file documented as of this encounter Procedures Procedure Name Priority Date/Time Associated Diagnosis Comments ORDS - PROVIDER CARE SCAN 01/22/2019 12:00 AM EDT documented in this encounter Results * SCAN DOC: ORDS - PROVIDER CARE (01/22/2019 12:00 AM EDT) Narrative 01/22/2019 12:00 AM EDT Ordered by an unspecified provider. Scanning Provider MEDIA MGR SCAN EXT O RDR/RSLT documented in this encounter Visit Diagnoses Diagnosis Rosacea Persons encountering health services in other specified circumstances documented in this encounter Care Teams Shoe Repairer Helper Relationship Specialty Start Date End Date Jennifer Bee MD [address] [place] [address] PCP - General Family Medicine 01/23/17 documented as of this encounter
--- OUTSIDE RECORDS SUMMARY | 2024-06-15 22:15 | XMS_ITS | Encounter Summary ---
Author Organization [facility] Address [address] [place] [address] Care Team Providers Care Slag Skimmer Name Role Phone Unavailable Primary Care Provider Unavailabl e Encounter Details Date Type Department Care Team (Late st Contact Info) Description 01/03/2021 Lab Requisition [facility] Medicine - [facility] [address] [place] [address] Outr Resulting Lab, Provider Social History Tobacco [...] Priority Date/Time Associated Diagnosis Comments ZZCOVID-19 TEST [facility] PCR Today 01/03/2021 14:16 EDT COVID-19 TESTING Routine 01/03/2021 14:1 6 EDT documented in this encounter Results * COVID-19 TEST [facility] (01/03/2021 14:16 EDT) Swab ENTIRE NASOPHARYNX / Unknown 01/03/2021 14:16 EDT 01/03/2021 21:54 EDT Provider Outr Resulting Lab MICROBIOLOGY - GENERAL ORDERABLES [facility] [address] [place] [address] * COVID-19 TESTING (01/03/2021 14:16 EDT) COVID-19 rt-PCR Result Negative Negative 01/04/2021 1:01 EDT [facility] Comment: This test has not [...] history, and epidemiological information. Performed on the [employer] Fusion instrument Performing Lab [place] [facility] Lab 01/04/2021 1:01 EDT [facility] Swab 01/03/2021 14:1 6 EDT 01/03/2021 21:54 EDT Provider Outr Resulting Lab MICROBIOLOGY - GENERAL ORDERABLES [facility] [address] [place] [address] documented in this encounter Visit Diagnoses Not on filedocumented in this encounter
--- OUTSIDE RECORDS SUMMARY | 2024-06-15 22:15 | XMS_ITS | Encounter Summary ---
Author Organization [facility] Address [address] [place] [address] Care Team Providers Care Optical Glass Silverer Name Role Phone Unavailable Primary Care Provider Unavailabl e Encounter Details Date Type Department Care Team (Late st Contact Info) Description 07/28/2021 Lab Requisition [facility] Pathology & Laboratory Medicine - [facility] [address] [place] [address] Outr Resulting Lab, Provider Social History Tobacco [...] Priority Date/Time Associated Diagnosis Comments ZZCOVID-19 TEST [facility] PCR Today 07/27/2021 9:10 EDT COVID-19 TESTING Routine 07/27/2021 9:10 EDT documented in this encounter Results * COVID-19 TEST [facility] LAB PCR (07/27/2021 9:10 EDT) Swab ENTIRE NASOPHARYNX / Unknown 07/27/2021 9:10 EDT 07/28/2021 16:26 EDT Provider Outr Resulting Lab MICROBIOLOGY - GENERAL ORDERABLES [facility] [address] [place] [address] * COVID-19 TESTING (07/27/2021 9:10 EDT) COVID-19 rt-PCR Result Negative Negative 07/28/2021 19:[address] [facility] Comment: This test has [...] history, and epidemiological information. Performed on the [employer] Fusion instrument Performing Lab [place] [facility] Lab 07/28/2021 19:[address] [facility] Swab 07/27/2021 9:10 EDT 07/28/2021 16:26 EDT Provider Outr Resulting Lab MICROBIOLOGY - GENERAL ORDERABLES [facility] [address] [place] [address] documented in this encounter Visit Diagnoses Not on filedocumented in this encounter
--- OUTSIDE RECORDS SUMMARY | 2024-06-15 22:15 | XMS_ITS | Encounter Summary ---
Author Organization [facility] [place] [address] Care Team Providers Care Signs Cleaner Name Role Phone Jennifer Bee MD Primary Care Provider [phone] Encounter Details Date Type Department Care Team (Late st Contact Info) Description 03/22/2020 Telephone Dermatology at [facility] [address] [place] [address] Brady Monroe RN Social History Tobacco Use Types Packs/Day Years Used Date Smoking Tobacco: Passive Smo ke Exposure - Never Smoker Smokeless Tobacco: Never Sex and Gender Information Value Date Recorded Sex Assigned at Not on file Gender Identity Not on file Sexual Orientation Not on file documented as of this encounter Miscellaneous Notes * Telephone Encounter - Malissa Vasquez - 03/22/2020 2:57 PM EDT Left msg patient would like to order product. documented in this encounter Plan of Treatment Not on file documented as of this encounter Visit Diagnoses Not on filedocumented in this encounter Care Teams Signs Cleaner Relationship Specialty Start Date End Date Jennifer Bee MD [address] [place] [address] PCP - General Family Medicine 01/23/17 documented as of this encounter
--- OUTSIDE RECORDS SUMMARY | 2024-06-15 22:15 | XMS_ITS | Encounter Summary ---
Author Organization [facility] [place] [address] Care Team Providers Care Detacher Name Role Phone Jennifer Bee MD Primary Care Provider [phone] Reason for Visit * Reason Comments Rosacea Encounter Details Date Type Department Care Team (Late st Contact Info) Description 01/23/2017 8:15 AM EDT Office Visit Dermatology at [facility] [address] [place] [address] Jacques Gatica III, MD [facility]LLERMINABRITNEY [place] [address] Rosacea Social History Tobacco Use Types Packs/Day Years Used Date Smoking Tobacco: Passive Smo ke Exposure - Never Smoker Sex and Gender Information Value Date Recorded Sex Assigned at Not on file Gender Identity Not on file Sexual Orientation Not on file documented as of this encounter Progress Notes * Melina Vaughn LPN - 01/23/2017 8:15 AM EDT DERMATOLOGY ESTABLISHED PATIENT CLINIC NOTE Date of service: 01/23/2017 Malissa Le : 1950 Provider: Jacques Gatica MD PROBLEM: follow up rosacea SKIN HISTORY: rosacea HPI Malissa Le is a 66 y.o. year old female. She has had rosacea for 15 years. She has treated itwith Metronidazole cream 0.75%. She does get occasional flares. She takes Amoxicillin 500 mg once daily as needed for this when flares occur , then weans off. She needs refills for both medications. ADR: Allergies Allergen Reactions ??? Tetracycline Rash CURRENT MEDICATIONS: Current Outpatient Prescriptions Medication Sig Dispense Refill ??? rosuvastatin (CRESTOR) 10 mg Tablet Take 10 mg by mouth daily. ??? meTOPROLOL tartrate (LOPRESSOR) 50 mg Tablet Take 50 mg by mouth 2 times daily. ??? amoxicillin (AMOXIL) 500 mg Capsule Take 1 cap once daily, weaning off as it clears. 30 capsule1 ??? metroNIDAZOLE (METROCREAM) 0.75 % Cream Apply once or twice daily to face for rosacea 45 g 1 No current facility-administered medications for this visit. PROBLEM LIST: Patient Active Problem List Diagnosis Code ??? 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 Oriented X 3. Skin: denies other skin complaints EXAM General: NAD, pleasant, cooperative Skin: A focused exam of the face was performed. Significant skin findings: A. No active rosacea noted on exam today. ASSESSMENT/PLAN: A. History of Rosacea - face, doing well with current regime- recommend she continue topical therapy for mild rosacea - Refill Rx: Metrocream 0.75% cream (sent to [facility] pharmacy) Apply topically to the face once or twice daily 45 grams ?? For flares, consider more aggressive therapy: - Refill Rx: Amoxicillin 500 mg (sent to [facility] pharmacy) Take 1 tablet once daily, weaning off as it clears Discussed importance of sun protection, sun avoidance strategies, protective clothing, and sunscreen. RTC in 1 year for skin check, sooner if needed. Reminder placed in scheduling system. Instructed tocall if problems arise. I am documenting this encounter acting as the scribe for and in the presence of Dr. Gatica.: MELINA VAUGHN LPN I performed the above scribed service and agree with the accuracy of the documentation in this encounter. Jacques Gatica MD Section of Dermatology [facility] documented in this encounter Plan of Treatment Not on file documented as of this encounter Visit Diagnoses Diagnosis Rosacea documented in this encounter Care Teams Detacher Relationship Specialty Start Date End Date Jennifer Bee MD [address] [place] [address] PCP - General Family Medicine 01/23/17 documented as of this encounter
--- OUTSIDE RECORDS SUMMARY | 2024-06-15 22:15 | XMS_ITS | Encounter Summary ---
Author Organization [facility] [place] [address] Care Team Providers Care Warehouse Examiner Name Role Phone Stephen Reddy MD Primary Care Provider [phone] Reason for Visit * Reason Comments Rosacea Encounter Details Date Type Department Care Team (Late st Contact Info) Description 10/12/2015 8:45 AM EST Office Visit Dermatology at [facility] [address] [place] [address] Jacques Gatica III, MD [facility] [address] Rosacea Social History Tobacco Use Types Packs/Day Years Used Date Smoking Tobacco: Passive Smo ke Exposure - Never Smoker Sex and Gender Information Value Date Recorded Sex Assigned at Not on file Gender Identity Not on file Sexual Orientation Not on file documented as of this encounter Progress Notes * Melina Vaughn LPN - 10/12/2015 8:44 AM EST DERMATOLOGY CONSULT NOTE Date of service: 10/12/2015 Malissa Le : 1950 Provider: Jacques Gatica MD PROBLEM: rosacea The patient is seen at the request of self, who instructed the patient to be seen for evaluation ofabove HPI Malissa Le is a 65 y.o. year old female. She has had rosacea for 14 years. She has treated itwith Metronidazole gel 0.75%. She does get occasional flares. She had one in August and does get the inflammatory papules when these occur. At one point she took TCN for this and it worked well, but she developed a rash from the TCN and stopped it. Since she has not taken anything for this . The l ast time she flared she took Amoxicillin once daily that her had for another problem and itdid help. She wonders if this is something she can try. PAST SKIN HX: no personal history of skin cancer or skin diseases SOCIAL HX: , has rosacea FAMILY HX: mother had BCC removed. ADR: Allergies Allergen Reactions ??? Tetracycline Rash MEDS: Current Outpatient Prescriptions Medication Sig Dispense Refill ??? rosuvastatin (CRESTOR) 10 mg Tablet Take 10 mg by mouth daily. ??? meTOPROLOL tartrate (LOPRESSOR) 50 mg Tablet Take 50 mg by mouth 2 times daily. No current facility-administered medications for this visit. ROS General: feeling well Skin: denies other skin complaints EXAM General: NAD, pleasant, cooperative Skin: A focused exam of the face was performed. Significant skin findings: A. Mild rosacea at present with only occasional inflammatory papule, no pustules ASSESSMENT/PLAN: A. Rosacea (Acne rosacea) - I discussed this condition with the patient and explored therapeutic options. Recommendations: Continue topical therapy for mild rosacea. Wants to change to cream instead of gel as the gel is too drying. - RX Metrocream 0.75% cream (printed script given to pt) Apply topically to the face once or twice daily 45 grams for flares, consider more aggressive therapy: - RX Amoxicillin 500 mg (printed script given to pt) Take 1 tablet once daily, weaning off as it clears 30 tablets with 1 refill Call if problems arise or areas have not cleared as expected. The nature of sun-induced photo-aging and skin cancers is discussed. Sun avoidance, protective clothing, and the use of 30-SPF sunscreens is advised. Observe closely for skin damage/changes, and callif such occurs. RTC in 1 year for a full skin exam, sooner if needed. Reminder placed in scheduling system. Instructed to call if problems arise. I am documenting this encounter acting as the scribe for and in the presence of Dr. Gatica.: MELINA VAUGHN LPN and Krysten Carroll, Clinical Scribe I performed the above scribed service and agree with the accuracy of the documentation in this encounter. Jacques Gatica MD Section of Dermatology [facility] documented in this encounter Plan of Treatment Not on file documented as of this encounter Visit Diagnoses Diagnosis Rosacea documented in this encounter Care Teams Warehouse Examiner Relationship Specialty Start Date End Date Stephen Reddy MD [facility] [address] [place] [address] PCP - General 12/18/14 01/22/17 documented as of this encounter
--- OUTSIDE RECORDS SUMMARY | 2024-06-15 22:15 | XMS_ITS | Encounter Summary ---
Author Organization [facility] [place] [address] Care Team Providers Care Base Ply Hand Name Role Phone Jennifer Bee MD Primary Care Provider [phone] Reason for Visit * Reason Comments Follow-up Rosacea Encounter Details Date Type Department Care Team (Late st Contact Info) Description 12/17/2018 1:45 PM EDT Office Visit Dermatology at [facility] [address] [place] [address] Jacques Gatica III, MD [facility] [place] [address] Rosacea Social History Tobacco Use Types Packs/Day Years Used Date Smoking Tobacco: Passive Smo ke Exposure - Never Smoker Smokeless Tobacco: Never Sex and Gender Information Value Date Recorded Sex Assigned at Not on file Gender Identity Not on file Sexual Orientation Not on file documented as of this encounter Progress Notes * Karin Unger LPN - 12/17/2018 1:45 PM EDT DERMATOLOGY ESTABLISHED PATIENT CLINIC NOTE Date of service: 12/17/2018 Malissa Le : 1950 Provider: Jacques Gatica MD PROBLEM: Rosacea follow up SKIN HISTORY: - Rosacea: Metronidazole cream 0.75% and Amoxicillin 500mg - Actinic keratosis HPI Malissa Le is a 68 y.o. year old female. Pt last seen on 08/20/18. Here today for a Rosacea Follow up. On amoxacillin for the past three weeks and is applying metronidazole cream. She is noticing new blotches appearing every morning. She isleaving for Sunday to visit her Son. Th amoxicillin is not sitting well with her stomach and she wants to stop it. She has a lot of makeup on today Procedure Screening Questions: Allergy to lidocaine or epinephrine:??No Blood thinners: No Pacemaker/defibrillator:??No Heart valves:??No Joint replacements:??No ADR: Allergies Allergen Reactions ??? Tetracycline Rash CURRENT MEDICATIONS: Current Outpatient Medications Medication Sig Dispense Refill ??? amoxicillin (AMOXIL) 500 mg Capsule Take [...] complaints EXAM General: NAD, pleasant, cooperative Skin: focused exam of the face Significant skin findings: A. Rare pink papules on the central face with background of telangectasia on cheeks, central face and forehead ASSESSMENT/PLAN: A. Rosacea??- mild flare I discussed this condition with the patient and explored therapeutic options. She is troubled by the telangiectasia and erythema, but also by occasional papule. She has not had deep inflammatory lesions. She wants continue topical therapy for her rosacea and avoid oral therapy -??continue??Rx:??Metrocream 0.75% cream - Apply topically to the face once or twice daily (patienthas this at home) - She can stop the amoxicillin (AMOXIL) 500 mg - which is causing her GI distress. - consider CeraVe moisturizer for the face - Suggested consultation with Dr. Bergeron to discuss rosacea - Informed patient of $150 consultation fee to be paid at time of service - this is a medical referral and she may not have to pay the consultation fee. - $100 of the consultation fee will be applied to the patient's first cosmetic procedure. - Patient's main concern: she is using metronidozole topically. RTC - as scheduled with Dr. Bergeron for evaluation of rosacea I am documenting this encounter acting as the scribe for and in the presence of Dr. Gatica.: Karin Unger LPN I, Ben Turk, have performed the documentation for this encounter in the presence of and acting as a scribe for JACQUES GATICA III, MD. I performed the above scribed service and agree with the accuracy of the documentation in this encounter. Jacques Gatica MD Section of Dermatology [facility] documented in this encounter Plan of Treatment Not on file documented as of this encounter Visit Diagnoses Diagnosis Rosacea documented in this encounter Care Teams Base Ply Hand Relationship Specialty Start Date End Date Jennifer Bee MD [address] [place] [address] PCP - General Family Medicine 01/23/17 documented as of this encounter
--- OUTSIDE RECORDS SUMMARY | 2024-06-15 22:15 | XMS_ITS | Clinical Summary ---
Author Organization [facility] [place] [address] Care Team Providers Care Physical Scientist Name Role Phone Jennifer Bee MD Primary Care Provider [phone] Allergies Active Allergy Reactions Criticality Noted Date Comments Doxycycline 12/17/2018 Rash Tetracycline Rash 10/12/2015 Medications Medication Sig Dispensed Refills Start Date End Date Status rosuvastatin (CRESTOR) 10 mg Tablet Take 10 mg by mouth daily. Active meTOPROLOL tartrate (LOPRESSOR) 50 mg Tablet Take 50 mg by mouth 2 times daily. Active metroNIDAZOLE (METROCREAM) 0.75 % Cream Apply once or twice daily to face for rosacea 45 g 1 01/24/2017 Active amoxicillin (AMOXIL) 500 mg CapsuleIndications: Rosacea Take 1 cap once daily for rosacea, weaning off as face clears. 30 capsule 1 08/20/2018 Active multivitamin Capsule Take 1 capsule by mouth daily. 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 Social History Tobacco Use Types Packs/Day Years Used Date Smoking Tobacco: Passive Smo ke Exposure - Never Smoker Smokeless Tobacco: Never Sex and Gender Information Value Date Recorded Sex Assigned at Not on file Gender Identity Not on file Sexual Orientation Not on file Plan of Treatment Health Maintenance Due Date Last Done Comments CT Colonography 1950 Colonoscopy 1950 Colorectal Cancer Screening 1950 FIT DNA 1950 FIT 1950 Sigmoidoscopy (10 year) with FIT yearly 1950 Sigmoidoscopy 1950 Hepatitis C Screening 1969 Tdap adult 1970 Tetanus vaccine 1970 Breast Cancer Share Decision Needed 1991 Breast Cancer screening 1991 Zoster vaccine (1 of 2) 2001 Advance Directive 2006 Bone Density Scan 2016 Pneumoccocal Vaccine: 65+ (1 of 1 - PCV) 2016 Covid-19 Vaccine (1 - 2022-24 season) 2024 Influenza (Flu) vaccine (1 o f 1 - Influenza standard series) 05/25/2024 Care Teams Physical Scientist Relationship Specialty Start Date End Date Jennifer Bee MD [address] [place] [address] PCP - General Family Medicine 01/23/17
--- OUTSIDE RECORDS SUMMARY | 2024-06-15 22:15 | XMS_ITS | Encounter Summary ---
Author Organization [facility] Address [address] [place] [address] Care Team Providers Care Child Psychometrist Name Role Phone Unavailable Primary Care Provider Unavailabl e Encounter Details Date Type Department Care Team (Late st Contact Info) Description 07/13/2021 Lab Requisition [facility] Pathology & Laboratory Medicine - [facility] [address] [place] [address] Outr Resulting Lab, Provider Social History Tobacco [...] Priority Date/Time Associated Diagnosis Comments ZZCOVID-19 TEST [facility] PCR Today 07/13/2021 8:37 EDT COVID-19 TESTING Routine 07/13/2021 8:37 EDT documented in this encounter Results * COVID-19 TEST [facility] PCR (07/13/2021 8:37 EDT) Swab ENTIRE NASOPHARYNX / Unknown 07/13/2021 8:37 EDT 07/13/2021 17:40 EDT Provider Outr Resulting Lab MICROBIOLOGY - GENERAL ORDERABLES [facility] [address] [place] [address] * COVID-19 TESTING (07/13/2021 8:37 EDT) COVID-19 rt-PCR Result Negative Negative 07/13/2021 22:24 EDT [facility] Comment: This test has [...] history, and epidemiological information. Performed on the IMScoutingher Fusion instrument Performing Lab [facility] Lab 07/13/2021 22:24 EDT [facility] Swab 07/13/2021 8:37 EDT 07/13/2021 17:40 EDT Provider Outr Resulting Lab MICROBIOLOGY - GENERAL ORDERABLES [facility] [address] [place] [address] documented in this encounter Visit Diagnoses Not on filedocumented in this encounter
--- OUTSIDE RECORDS SUMMARY | 2024-06-15 22:15 | XMS_ITS | Encounter Summary ---
Author Organization [facility] Address [address] [place] [address] Care Team Providers Care Patcher Wood Welder Name Role Phone Unavailable Primary Care Provider Unavailabl e Encounter Details Date Type Department Care Team (Late st Contact Info) Description 07/12/2020 Lab Requisition [facility] Pathology & Laboratory Medicine - [facility] [address] [place] [address] Outr Resulting Lab, Provider Social History Tobacco Use Types Packs/Day Years Used Date Smoking Tobacco: Never Assessed Sex and Gender Information Value Date Recorded Sex Assigned at Not on file Gender Identity Not on file Sexual Orientation Not on file documented as of this encounter Plan of Treatment Not on file documented as of this encounter Procedures Procedure Name Priority Date/Time Associated Diagnosis Comments DO NOT ORDER STANDALONE - BROAD COVID TEST Today 07/12/2020 9:12 EDT COVID-19 TESTING Routine 07/12/2020 9:12 EDT documented in this encounter Results * DO NOT ORDER STANDALONE - BROAD COVID TEST (07/12/2020 9:12 EDT) COVID-19 rt-PCR Result NEGATIVE Negative 07/14/2020 14:36 EDT [facility] Comment: 2019-novel Coronavirus (2019-nCoV) not detected by the qRT-PCR assay. Consider testing for other respiratory viruses or re-collecting for 2019-nCoV testing. Note: Optimum timing for peak viral levels during infections caused by 2019-nCoV have not been determined. Collection of multiple specimens from the same patient may be necessary to detect the virus. Limitations Positive results are indicative of active infection with SARS-CoV-2 but do not rule out bacterial infection or co-infection with other viruses. The agent detected may not be the definite cause of disease. In addition, detection of viral RNA may not indicate the presence of infectious virus or that SARS-CoV-2 is the causative agent for clinical symptoms. Negative results do not preclude SARS-CoV-2 infection and should not be used as the sole basis for patient management decisions. Negative results must be combined with clinical observations, patient history, and epidemiological information. False negative results may also occur if amplification inhibitors are present in the specimen or if inadequate numbers of organisms are present in the specimen. Optimum specimen types and timing for peak viral levels during infections caused by SARS-CoV-2 have not been fully determined. Collection of multiple specimens (types and time points) from the same patient may be necessary to detect the virus. The test was validated for use with upper respiratory specimens obtained via nasopharyngeal or oropharyngeal swabs in VTM, UTM, M4, M5, M6, saline, and MTM media. The performance of this test has not been established for other specimens. Specimens collected using other FDA recommended Specimen Collection Materials listed in the FDA COVID-19 Diagnostic Technologies communication (December 18, 2019) are processed with the caveat that they were not all validated for use with this test and the result must be interpreted in this context. Furthermore, a false negative results may occur if a specimen is improperly collected, transported or handled. If the virus mutates in the RT-PCR target region, SARS-CoV-2 may not be detected or may be detected less predictably. Inhibitors or other types of interference may produce a false negative result. An interference study evaluating the effect of common cold medications was not performed. This test is not FDA-cleared but its performance characteristics were established by our CLIA-certified, CAP-accredited, high complexity laboratory in accordance with CLIA regulations, College [employer] (CAP) guidelines (Dec 11, 2019), and FDA guidance (Nov 22, 2019). This test is only for use under the Food and Drug Administration's Emergency Use Authorization. Swab ENTIRE NASOPHARYNX / Unknown 07/12/2020 9:12 EDT 07/12/2020 16:25 EDT Provider Outr Resulting Lab MICROBIOLOGY - GENERAL ORDERABLES [facility] [place] * COVID-19 TESTING (07/12/2020 9:12 EDT) Pathologist [facility] COVID-19 rt-PCR Result NEGATIVE Negative 07/14/2020 17:49 EDT [facility] Comment: 2019-novel Coronavirus (2019-nCoV) not detected by the qRT-PCR assay. Consider testing for other respiratory viruses or re-collecting for 2019-nCoV testing. Note: Optimum timing for peak viral levels during infections caused by 2019-nCoV have not been determined. Collection of multiple specimens from the same patient may be necessary to detect the virus. Limitations Positive results are indicative of active infection with SARS-CoV-2 but do not rule out bacterial infection or co-infection with other viruses. The agent detected may not be the definite cause of disease. In addition, detection of viral RNA may not indicate the presence of infectious virus or that SARS-CoV-2 is the causative agent for clinical symptoms. Negative results do not preclude SARS-CoV-2 infection and should not be used as the sole basis for patient management decisions. Negative results must be combined with clinical observations, patient history, and epidemiological information. False negative results may also occur if amplification inhibitors are present in the specimen or if inadequate numbers of organisms are present in the specimen. Optimum specimen types and timing for peak viral levels during infections caused by SARS-CoV-2 have not been fully determined. Collection of multiple specimens (types and time points) from the same patient may be necessary to detect the virus. The test was validated for use with upper respiratory specimens obtained via nasopharyngeal or oropharyngeal swabs in VTM, UTM, M4, M5, M6, saline, and MTM media. The performance of this test has not been established for other specimens. Specimens collected using other FDA recommended Specimen Collection Materials listed in the FDA COVID-19 Diagnostic Technologies communication (December 18, 2019) are processed with the caveat that they were not all validated for use with this test and the result must be interpreted in this context. Furthermore, a false negative results may occur if a specimen is improperly collected, transported or handled. If the virus mutates in the RT-PCR target region, SARS-CoV-2 may not be detected or may be detected less predictably. Inhibitors or other types of interference may produce a false negative result. An interference study evaluating the effect of common cold medications was not performed. This test is not FDA-cleared but its performance characteristics were established by our CLIA-certified, CAP-accredited, high complexity laboratory in accordance with CLIA regulations, College of [place] [employer]ologists (CAP) guidelines (Dec 11, 2019), and FDA guidance (Nov 22, 2019). This test is only for use under the Food and Drug Administration's Emergency Use Authorization. Performing Lab [facility] [place] 07/14/2020 17:49 EDT [facility] Swab 07/12/2020 9:12 EDT 07/12/2020 16:25 EDT Provider Outr Resulting Lab MICROBIOLOGY - GENERAL ORDERABLES [facility] [address] [place] [address] [facility] [place], [place] documented in this encounter Visit Diagnoses Not on filedocumented in this encounter
--- OUTSIDE RECORDS SUMMARY | 2024-06-15 22:15 | XMS_ITS | Encounter Summary ---
Author Organization [facility] [place] [address] Care Team Providers Care 4 H Youth Development Specialist Name Role Phone Stephen Reddy MD Primary Care Provider [phone] Reason for Visit * Reason Comments Skin Check Encounter Details Date Type Department Care Team (Late st Contact Info) Description 12/18/2014 8:00 AM EDT Office Visit Dermatology at [address] [place] [address] Scotty Hernandez MD [address] [place] [address], [place] [address] Dermatographism Discharge Disposition: Home Social History Tobacco Use Types Packs/Day Years Used Date Smoking Tobacco: Passive Smo ke Exposure - Never Smoker Sex and Gender Information Value Date Recorded Sex Assigned at Not on file Gender Identity Not on file Sexual Orientation Not on file documented as of this encounter Patient Instructions * Patient Instructions* Laurel Whitten LPN - 12/18/2014 8:03 AM EDT Images from the original note were not included. [facility] Dermatitis: After Your Visit Your Care Instructions Dermatitis is the general name used for any rash or inflammation of the skin. Different kinds of dermatitis cause different kinds of rashes. Common causes of a rash include new medicines, plants (such as poison oak or poison claribel), heat, stress, and allergies to soaps, cosmetics, detergents, chemicals, and fabrics. Certain illnesses can also cause a rash. Unless caused by an infection, these rashes cannot be spread from person to person. How long your rash will last depends on what caused it. Rashes may last a few days or months. Follow-up care is a santiago part of your treatment and safety. Be sure to make and go to all appointments, and call your doctor if you are having problems. It???s also a good idea to know your test results and keep a list of the medicines you take. How can you care for yourself at home? ?? Do not scratch. Cut your nails short, and file them smooth. Or you may wear gloves if this helpskeep you from scratching. ?? If you use soap on the rash, choose a gentle soap and use as little as possible. ?? Put cold, wet cloths on the rash to reduce itching. ?? Keep cool, and stay out of the sun. Heat makes itching worse. ?? Leave the rash open to the air when you can. If your clothes have to cover the rash, wear cottonor silk. ?? If the rash itches, use hydrocortisone cream. Follow the directions on the label. Calamine lotion may help for plant rashes. ?? Try an [id number]-eybddtf antihistamine such as diphenhydramine (Benadryl) or chlorpheniramine (Chlor-Trimeton). Follow the directions on the label. ?? If you get a prescription steroid cream or pills, use them as directed. When should you call for help? Call your doctor now or seek immediate medical care if: ?? You have signs of infection, such as: ?? Increased pain, swelling, warmth, or redness. ?? Red streaks leading from the rash. ?? Pus draining from the rash. ?? A fever. ?? You have joint pain along with the rash. ?? The rash gets worse or spreads to other parts of your body. Watch closely for changes in your health, and be sure to contact your doctor if: ?? You do not get better after 2 to 3 weeks of home treatment. Where can you learn more? Visit our health information library at [email or web address] You can also view health information on [email or web address], your personal patient account. Log in or sign up today. Enter F270 in the search box to learn more about Dermatitis: After Your Visit. ?? [id number] [employer], [employer]. Care instructions adapted under license by [facility]. This care instruction is for use with your licensed healthcare professional. If you have questions about a medical condition or this instruction, always ask your healthcare professional. [employer] disclaims any warranty or liability for your use of this information. Content Version: 10.3.541888; Current as of: December 03, 2013 documented in this encounter Progress Notes * Scotty Hernandez MD - 12/18/2014 8:18 AM EDT Problem: Pruritus. Bianca follows up after last seeing me in 2008 for her rosacea. For the last week or so she has had problems with significant itching that began on her feet and hands and has been spreading up her legs and arms. She has been well, had no recent infections. She is not using any new soaps or detergents. She has been on Crestor for years, but since Sunday stopped that. She uses MetroGel p.r.n. for her rosacea. When I had last seen her I had treated her with tetracycline, and apparently she developed an allergic reaction to. Her rosacea is adequately controlled with p.r.n. use of the MetroGel. 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 Physical examination today reveals erythematous papules on the arms and legs. There are no finger webspace lesions. There is no evidence of any scabetic lesions. Her at home is not itching. She has erythematous welts developed at sights of light scratching on the arms. She has no other primary dermatologic findings. She has mild patch rosacea of the cheeks. She has no papulopustule lesions. Assessment and Plan: Dermatographism. a. Trigger for this is unclear, but we will treat symptomatically. b. Recommend that she begin triamcinolone 0.1% cream, applying b.i.d. to affected areas; 80 grams dispensed with three refills. c. Reassured patient that she is not contagious to her coworkers. d. Recommend that she also begin taking cetirizine or loratadine in the morning and take a dose of Atarax, hydroxyzine, 25 mg one to two p.o. q.h.s.; #20 dispensed with zero refills. Expect that this should resolve within the next few weeks. She will call me in two weeks if this is not the case. e. She notes that since Sunday (today is Sunday) that her itching has already decreased. documented in this encounter Plan of Treatment Not on file documented as of this encounter Visit Diagnoses Diagnosis Dermatographism Dermatographic urticaria documented in this encounter Care Teams 4 H Youth Development Specialist Relationship Specialty Start Date End Date Stephen Reddy MD [address] [address] PCP - General 12/18/14 01/22/17 documented as of this encounter
--- OUTSIDE RECORDS SUMMARY | 2024-06-15 22:15 | XMS_ITS | Referral Summary ---
Author Organization [facility] Address [address] [place] [address] Care Team Providers Care Release Of Information Specialist Name Role Phone Unavailable Primary Care Provider Unavailabl e Social History Tobacco Use Types Packs/Day Years Used Date Smoking Tobacco: Never Assessed Interpersonal Safety Answer Date Record ed Physically Hurt Never 08/17/2020 Verbally Threaten Not on file 08/17/2020 Sex and Gender Information Value Date Recorded Sex Assigned at Not on file Gender Identity Not on file Sexual Orientation Not on file Plan of Treatment Not on file
--- OUTSIDE RECORDS SUMMARY | 2024-06-15 22:15 | XMS_ITS | Encounter Summary ---
Author Organization [facility] [place] [address] Care Team Providers Care International Logistics Manager Name Role Phone Jennifer Bee MD Primary Care Provider [phone] Reason for Visit * Reason Comments Rosacea Encounter Details Date Type Department Care Team (Late st Contact Info) Description 08/20/2018 2:00 PM EST Office Visit Dermatology at [facility] [address] [place] [address] Jacques Gatica III, MD [facility] [place] [address] Rosacea Social History Tobacco Use Types Packs/Day Years Used Date Smoking Tobacco: Passive Smo ke Exposure - Never Smoker Smokeless Tobacco: Never Sex and Gender Information Value Date Recorded Sex Assigned at Not on file Gender Identity Not on file Sexual Orientation Not on file documented as of this encounter Progress Notes * [facility] 08/20/2018 2:00 PM EST DERMATOLOGY ESTABLISHED PATIENT CLINIC NOTE Date of service: 08/20/2018 Malissajung Le : 1950 Provider: Jacques Gatica MD PROBLEM: rosacea SKIN HISTORY: - Rosacea: Metronidazole cream 0.75% and Amoxicillin 500mg - Actinic keratosis HPI Malissa Ibarraels is a 68 y.o. female. Established patient last seen on 04/18/17 by Juliana Thompson PA-C. Patient is here today for rosacea which has been acting up. She states that her face has been itchy and breaking out with small inflammatory papules on the cheeks. She would like refills of her medications today. She ran out of Amoxicillin in the early spring and has not needed it until recently when she began to flare. She still has one tube of Metrocream cream left but has been using more lately. ADR: Allergies Allergen Reactions ??? Tetracycline Rash [...] exam of the face Significant skin findings: A.mild active rosacea at this time - a few small papules and mild erythema noted. ASSESSMENT/PLAN: A. Rosacea , mild - face, doing well with current regimen recommend she continue topical therapy for mild rosacea - continue Rx: Metrocream 0.75% cream - Apply topically to the face once or twice daily (patient has this at home) - Refill Rx: amoxicillin (AMOXIL) 500 mg - start with one capsule daily, weaning off as it clears (sent to [facility] pharmacy) #30 refill X 1; call if more needed. - consider CeraVe moisturizer for the face Call if areas do not resolve as expected or problems arise. RTC - 1 year for medication refill or sooner as needed. Reminder placed in scheduling system. I am documenting this encounter acting as the scribe for and in the presence of Dr. Gatica.: DANIE Morrissey I, Ben Turk, have performed the documentation for this encounter in the presence of and acting as a scribe for JACQUES GATICA III, MD. I prformed the above scribed service and agree with the accuracy of the documentation in this encounter. Jacques Gatica MD Section of Dermatology [facility] documented in this encounter Plan of Treatment Not on file documented as of this encounter Visit Diagnoses Diagnosis Rosacea documented in this encounter Care Teams International Logistics Manager Relationship Specialty Start Date End Date Jennifer Bee MD [address] [place] [address] PCP - General Family Medicine 01/23/17 documented as of this encounter
--- OUTSIDE RECORDS SUMMARY | 2024-06-15 22:15 | XMS_ITS | Encounter Summary ---
Author Organization [facility] Address [facility] [place] [address] Care Team Providers Care Art Teacher Name Role Phone Stephen Reddy MD Primary Care Provider [phone] Reason for Visit * Reason Comments Other Encounter Details Date Type Department Care Team (Late st Contact Info) Description 11/12/2015 Telephone Dermatology at [facility] [address] [place] [address] Jacques Gatica III, MD [facility] [place] [address] Social History Tobacco Use Types Packs/Day Years Used Date Smoking Tobacco: Passive Smo ke Exposure - Never Smoker Sex and Gender Information Value Date Recorded Sex Assigned at Not on file Gender Identity Not on file Sexual Orientation Not on file documented as of this encounter Miscellaneous Notes * Telephone Encounter - Melina Gallagher LPN - 11/12/2015 3:35 PM EST ----- Message from Jacques Gatica III, MD sent at 11/12/2015 7:50 AM EST ----- Please check on the lesions we treated. Thanks. See as planned if needed, sooner if problems arise. I called and left a message for her to call if her rosacea is still giving her trouble. documented in this encounter Plan of Treatment Not on file documented as of this encounter Visit Diagnoses Not on filedocumented in this encounter Care Teams Art Teacher Relationship Specialty Start Date End Date Stephen Reddy MD [facility] [address] [place] [address] PCP - General 12/18/14 01/22/17 documented as of this encounter
--- OUTSIDE RECORDS SUMMARY | 2024-06-15 22:15 | XMS_ITS | Clinical Summary ---
Author Organization [facility] Address [address] [place] [address] Care Team Providers Care Salesperson Neckties Name Role Phone Unavailable Primary Care Provider [...] Health Maintenance Due Date Last Done Comments Hepatitis C Screen 1950 RSV Immunization ( o r 60+ Years) (1 - 1-dose 60+ series) 2011 Fall Risk Screening 2016 COVID-19 Vaccine ( season) 2023
--- OUTSIDE RECORDS SUMMARY | 2024-06-15 22:15 | XMS_ITS | Encounter Summary ---
Author Organization [facility] [place] [address] Care Team Providers Care Computer Game Programmer Name Role Phone Jennifer Bee MD Primary Care Provider [phone] Reason for Visit * Reason Comments Skin Lesion h/o SCC Encounter Details Date Type Department Care Team (Late st Contact Info) Description 04/18/2017 8:00 AM EDT Office Visit Dermatology at [facility] [address] [place] [address] Phil Mora MD [address] [place] [address] Juliana Thompson PA [facility] [place] [address] AK (actinic keratosis) Social History Tobacco Use Types Packs/Day Years Used Date Smoking Tobacco: Passive Smo ke Exposure - Never Smoker Sex and Gender Information Value Date Recorded Sex Assigned at Not on file Gender Identity Not on file Sexual Orientation Not on file documented as of this encounter Patient Instructions * Patient Instructions* Vivian Seth, SEDRICK - 04/18/2017 8:00 AM EDT Actinic Keratoses You have been diagnosed today with Actinic Keratosis (AK). These dry, scaly patches are considered the earliest stage in the development of skin cancer. In rare cases, an AK can progress to skin cancer. Because of this risk, AKs are usually treated. You were treated today with Liquid Nitrogen. This is the most common treatment for AKs. Liquid nitrogen is extremely cold, and freezes the surface of the skin, causing the lesion to flake off. Treatment with liquid nitrogen can be uncomfortable, but discomfort should subside after a couple of hours. The area treated will look red and irritated, and it may blister up or turn dark, then fall off. This is normal! You do not need any special treatment for the area, but you may find cold compresses and/or a lightapplication of Vaseline soothing. For best results, do not rub or pick at the healing lesion. Expected healing time is 3-4 weeks. Please contact the Dermatology clinic at [phone] if the lesion has not fully resolved after 6 weeks. documented in this encounter Progress Notes * Juliana Thompson PA - 04/18/2017 8:00 AM EDT Images from the original note were not included. DERMATOLOGY - ESTABLISHED PATIENT CLINIC NOTE Date of service: 04/18/2017 Malissa Le : 1950 Dermatology Physician Chain Offbearer Note: Juliana Thompson PA-C (Bri) Chief Complaint Patient presents with ??? Skin Lesion h/o SCC This is an established patient, last seen by Dr. Gatica on 01/23/2017 for rosacea. This patient is new to me. HPI: Malissa Le is a 66 y.o. female who presents for a skin lesion on the left outer thigh, noticed 1 week ago. Symptoms are itching and scaling. Never been treated or biopsied. Skin History: rosacea Medical History: No past medical history on file. No Defibrillator/pacemaker No Anti-coagulants Medications: Current Outpatient Prescriptions on File Prior to Visit Medication Sig Dispense Refill ??? amoxicillin (AMOXIL) [...] facility-administered medications on file prior to visit. Allergies: Allergies Allergen Reactions ??? Tetracycline Rash Family History: Yes, sister; family history of melanoma No family history of atopy, psoriasis or other skin disease Social/Occupational History: Review of Systems: - General: Feels well. - Skin: As per HPI; no other skin concerns. Examination: - Constitutional: Patient was alert, well-appearing and in no noticeable distress. - Skin: A abbreviated skin examination was performed. This includes the Lower extremities and Alba Skin Type: 2 Specific skin findings: 1. Left lateral thigh; 6x8 mm pink scaly non tender plaque. Diagnosis/Assessment/Treatment Plan: 1.Actinic Keratosis Discussed premalignant potential of lesions with patient and counseled that destruction with liquidnitrogen therapy is recommended. Patient agreed to the procedure after discussing risks/benefits/alternatives of the procedure, including hypopigmentation and discomfort. Wound care reviewed. Procedure Note: Procedure: Destruction of lesion(s) with cryotherapy. Number: 1 Location: as above Discussed procedure and expectations including risks (including risk of hypopigmentation) and benefits. Verbal consent obtained. Frozen with LN2, 15-30 second thaw time, TWICE. There were no complications; the patient tolerated the procedure well. Post-procedure expectations and wound care were reviewed. LOS: [id number] RTC in PRN . Instructed to call with questions/concerns. Patient verbally expressed understanding. I specifically asked the patient at the end of the visit if there were any further concerns or questions and the patient verbally stated there were no other concerns or questions. All questions were answered and all concerns were addressed. Note initiated by Vivian Seth CMA I am documenting this encounter acting as the scribe for and in the presence of Juliana Thompson PA-C (Bri) I performed the above scribed service and agree with the accuracy of the documentation in this encounter. Reviewed and signed by Juliana Thompson PA-C (Bri) Dermatology [facility] Staff physician: Margy Erazo MD Section of Dermatology [facility] documented in this encounter Plan of Treatment Not on file documented as of this encounter Visit Diagnoses Diagnosis AK (actinic keratosis) Actinic keratosis documented in this encounter Care Teams Computer Game Programmer Relationship Specialty Start Date End Date Jennifer Bee MD [address] [place] [id number] PCP - General Family Medicine 01/23/17 documented as of this encounter
--- OUTSIDE RECORDS SUMMARY | 2024-06-15 22:15 | XMS_ITS | Encounter Summary ---
[place] [address] Care Team Providers Care Order Tracer Name Role Phone Jennifer Bee MD Primary Care Provider [phone] Encounter Details Date Type Department Care Team (Late st Contact Info) Description 09/25/2018 Telephone Dermatology at [facility] [address] [place] [address] Ladi Reynolds LPN Social History Tobacco Use Types Packs/Day Years Used Date Smoking Tobacco: Passive Smo ke Exposure - Never Smoker Smokeless Tobacco: Never Sex and Gender Information Value Date Recorded Sex Assigned at Not on file Gender Identity Not on file Sexual Orientation Not on file documented as of this encounter Miscellaneous Notes * Telephone Encounter - Ladi Reynolds LPN - 09/25/2018 4:37 PM EST Reached out to Mervin for a RTC if her Rosacea is not improving or she has concerns. * Telephone Encounter - Ladi Reynolds LPN - 09/25/2018 4:36 PM EST ----- Message from Jacques Gatica III, MD sent at 09/24/2018 4:31 PM EST ----- Please check on the rosacea we treated. Thanks. See as planned if needed, sooner if problems arise. documented in this encounter Plan of Treatment Not on file documented as of this encounter Visit Diagnoses Not on filedocumented in this encounter Care Teams Order Tracer Relationship Specialty Start Date End Date Jennifer Bee MD [address] [place] [address] PCP - General Family Medicine 01/23/17 documented as of this encounter
--- OUTSIDE RECORDS SUMMARY | 2024-06-15 22:15 | XMS_ITS | Encounter Summary ---
Author Organization [facility] Address [address] [place] [address] Care Team Providers Care Return Agent Name Role Phone Unavailable Primary Care Provider Unavailabl e Encounter Details Date Type Department Care Team (Late st Contact Info) Description 07/08/2021 Lab Requisition [facility] Pathology & Laboratory Medicine - [facility] [address] [place] [address] Outr Resulting Lab, Provider Social History Tobacco [...] Comments ZZCOVID-19 TEST [facility] PCR Today 07/08/2021 8:47 EDT COVID-19 TESTING Routine 07/08/2021 8:47 EDT documented in this encounter Results * COVID-19 TEST [facility] LAB PCR (07/08/2021 8:47 EDT) Swab ENTIRE NASOPHARYNX / Unknown 07/08/2021 8:47 EDT 07/08/2021 21:31 EDT Provider Outr Resulting Lab MICROBIOLOGY - GENERAL ORDERABLES [facility] [address] [place] [address] * COVID-19 TESTING (07/08/2021 8:47 EDT) COVID-19 rt-PCR Result Negative Negative 07/09/2021 2:39 EDT [facility] Comment: This test has not [...] history, and epidemiological information. Performed on the Synackher Fusion instrument Performing Lab [facility] Lab 07/09/2021 2:39 EDT [facility] Swab 07/08/2021 8:47 EDT 07/08/2021 21:31 EDT Provider Outr Resulting Lab MICROBIOLOGY - GENERAL ORDERABLES [facility] [address] [place] [address] documented in this encounter Visit Diagnoses Not on filedocumented in this encounter
[2024-06-15 22:28] VITALS: BP 162/92; PULSE 76; RESP 28; TEMP 36.6; O2SAT 98
--- NOTE | 2024-06-15 23:04 | ED.GENADUL_ITS ---
Discharge Plan Disposition Patient Disposition: Home Condition: Good Discharge Details Clinical Impression: Cat bite of right forearm with infection Primary Care Provider: Jennifer Bee ED Provider: Carlos A Ji Meds and New Rx's Prescriptions: New amoxicillin-pot clavulanate 875-125 mg tablet 1 tab PO BID Qty: 10 0RF Continued metoprolol succinate 50 mg Tablet Extended Release 24 Hr 50 mg PO DAILY Discharge Instructions Instructions: Animal Bites ED Additional Instructions: You were seen for a cat bite that appears to be getting infected. You have been started on Augmentin which you will take twice a day until gone. Follow-up with primary care if not improving. Return to ED for increasing pain, redness, swelling, fever. Referrals: Jennifer Bee [Primary Care Provider] - Discharge Data Discharge Date/Time-TO BE ENTERED AT DEPARTURE: 06/15/24 23:26 HPI General Mode of arrival: ambulatory . Date/Time Provider Initiated Documentation: 06/15/24 22:20 . Limitations to Documentation: no limitations . Information obtained by: patient . HPI Narrative: Patient presenting with concern for a developing infection after being bit by her cat the previous day. Patient sustained a small puncture wound to the right forearm. She has now developed some increasing pain, redness, swelling. She has previous history of developing cellulitis in the past and wanted to be sure that was not occurring now. She otherwise feels well. Denies any fever or chills. Related Data Home Medications ?Medication ?Instructions ?Recorded ?Confirmed metoprolol succinate 50 mg 50 mg PO DAILY 09/07/18 06/15/24 tablet,extended release 24 hr amoxicillin 875 mg-potassium 1 tab PO BID #10 tabs 06/15/24 clavulanate 125 mg tablet Previous Rx's ?Medication ?Instructions ?Recorded amoxicillin 875 mg-potassium 1 tab PO BID #10 tabs 06/15/24 clavulanate 125 mg tablet Allergies Allergy/AdvReac Type Severity Reaction Status Date / Time doxycycline Allergy Skin Rash Verified 06/15/24 22:53 Tetracyclines Allergy Skin Rash Verified 06/15/24 22:53 General Stated Complaint: Abd Prob GIOVANI: 5 Review of Systems Narrative: Per HPI Exam Narrative Exam Narrative: Const: WDWN elderly female in NAD. VS per triage. HEENT: NC/AT. Normal facial exam. Neck: Supple. Trachea midline. Lungs: Normal respiratory effort. Neuro: A+O x 3. Normal speech, mentation, gait. Cranial nerves II - XII grossly intact. No gross motor or sensory deficit. Ext: No C/C/E. Skin: Small area of redness and swelling with mild tenderness R mid forearm, volar aspect. Tiny puncture wound noted centrally. Course Vital Signs Vital signs: Vital Signs Temperature 97.8 F 06/15/24 22:28 Pulse 76 06/15/24 22:28 Respiratory Rate 28 H 06/15/24 22:28 Blood Pressure 162/92 H 06/15/24 22:28 Pulse Oximetry 98 06/15/24 22:28 Temperature 97.8 F 06/15/24 22:28 Temperature Source Temporal Artery Scan 06/15/24 22:28 Pulse 76 06/15/24 22:28 Respiratory Rate 28 H 06/15/24 22:28 Respiratory Effort Normal, Non-Labored 06/15/24 22:35 Blood Pressure 162/92 H 06/15/24 22:28 Blood Pressure Position Sitting 06/15/24 22:28 Pulse Oximetry 98 06/15/24 22:28 Oxygen Delivery Method Room Air 06/15/24 22:28 Oxygen Flow Rate 0 06/15/24 22:28 Pain Level 2 06/15/24 22:28 Medical Decision Making Patient does likely have developing infection status post cat bite a little over 24 hours ago. Will start her on Augmentin with first dose given here and prescription for 5 more days sent to pharmacy. Follow-up with primary care if needed. Return precautions provided. 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
[2024-06-15] MEDS: Amoxicillin 875/Clav. 125 TAB PO (23:22)
[2024-06-15 23:23] VITALS: BP 162/92; PULSE 76; RESP 20; TEMP 36.6; O2SAT 100
== END 2024-06-15 23:26 | disposition home or self-care (01) ==
PROVIDERS: Emergency Provider Emergency Medicine; PCP Family Medicine
DX: S51.851A Open bite of right forearm, initial encounter (principal); I10 Essential (primary) hypertension; E78.5 Hyperlipidemia, unspecified; L03.113 Cellulitis of right upper limb; W55.01XA Bitten by cat, initial encounter; Y93.89 Activity, other specified; Y92.018 Other place in single-family (private) house as the place of occurrence of the external cause
CPT/HCPCS: 99283

== ENCOUNTER 2024-06-30 08:17 | Outpatient (CLI) | payer OTHER, MEDICARE, SELFPAY ==
[2024-06-30 08:25] LABS: ALT 32 U/L (14-59); AST 31 U/L (15-37); Albumin 3.9 g/dL (3.4-5.0); Alkaline Phosphatase 61 U/L (46-116); Anion Gap 6.9 mmol/L (3-11); BUN 17 mg/dL (7-18); Bilirubin, Total 0.51 mg/dL (0.2-1.0); CO2 30.1 mmol/L (21.0-32.0); CREATININE 0.8 mg/dL (0.55-1.02); Calcium 9.3 mg/dL (8.5-10.1); Chloride 106 mmol/L (98-107); Estimated GFR 77.75 (mL/min/1.73m2); Glucose 105 mg/dL (74-106); Potassium 3.8 mmol/L (3.5-5.1); Sodium 143 mmol/L (136-145); Total Protein 7.5 g/dL (6.4-8.2)
[2024-06-30 09:03] LABS: Calculated LDL 172 mg/dL (<100); Cholesterol 278 mg/dL (<200); HDL Cholesterol 58 mg/dL (40-60); Triglyceride 244 mg/dL (<150)
== END 2024-06-30 08:18 | disposition home or self-care (01) ==
LOC: LBO 08:18
PROVIDERS: PCP Family Medicine; Visit Provider Family Medicine
DX: E78.2 Mixed hyperlipidemia (principal); E55.9 Vitamin D deficiency, unspecified; I10 Essential (primary) hypertension
CPT/HCPCS: 36415; 80053; 80061; 82306

== ENCOUNTER 2024-10-21 02:11 | Outpatient (CLI) | payer OTHER, MEDICARE, SELFPAY ==
--- NOTE | 2024-10-21 07:45 | DI.RAD_ITS ---
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 TECHNIQUE: 2D digital imaging was performed. COMPARISON: CR XR FOOT LT COMPLETE from 07/03/2023 FINDINGS: Again noted are 2 orthopedic screws on the medial aspect of the foot. One of these extends obliquely from the medial cuneiform across the main Lisfranc joint into the base of the 2nd metatarsal and christofer ears unchanged. The other screw extends horizontally from the medial cuneiform through the middle an d lateral cuneiforms, similar to previous. The area of lucency around the distal aspect of the screw which extends to the lateral cuneiform appears less prominent on the present study. There is no obv ious hardware loosening. Position of the screws is unchanged and there is no hardware loosening evid ent. No evidence of osteomyelitis. There is no true fusion across the tarsometatarsal joints. Other findings are mild degenerative changes in the great toe metatarsophalangeal joint. IMPRESSION: Stable appearance. The previously described lucent area around the screw in the lateral cuneiform ap pears identical on the AP view and slightly less prominent on the lateral view. There is no radiogra phic progression of this finding when compared to prior images of June 2023. DATA REPOSITORY: RADIATION DOSE DELIVERED:
== END 2024-10-21 02:31 ==
LOC: DI 02:11
PROVIDERS: PCP Family Medicine; Visit Provider Podiatrist
DX: M79.672 Pain in left foot (principal); Z96.7 Presence of other bone and tendon implants
CPT/HCPCS: 73630